=== PATIENT | male | born 1950 | race Caucasian/White ===

== ENCOUNTER 2021-09-25 11:27 | Outpatient (REF) | payer MEDICARE, BC, SELFPAY ==
[2021-09-28 13:46] LABS: Albumin 58.7 % (55.8-66.1); Albumin g/dL 4.1 g/dL (3.6-5.2)
== END 2021-09-25 11:28 | disposition home or self-care (01) ==
LOC: NCHCN 11:27
PROVIDERS: Visit Provider Family Medicine
DX: M89.9 Disorder of bone, unspecified (principal); R97.20 Elevated prostate specific antigen [PSA]
CPT/HCPCS: 84153; 84165

== ENCOUNTER → 2021-09-30 10:49 | Outpatient (BNVA) | payer MEDICARE, BC, SELFPAY | PROVIDERS: Visit Provider Nurse Practitioner Gerontology | DX: N40.2 Nodular prostate without lower urinary tract symptoms (principal); R97.20 Elevated prostate specific antigen [PSA] | CPT/HCPCS: 99205 ==

== ENCOUNTER → 2021-10-02 00:42 | Outpatient (CLI) | payer MEDICARE, BC, SELFPAY ==
--- NOTE | 2021-10-02 07:00 | DI.US_ITS ---
Exam(s) US PROSTATE BIOPSY EXAM: US PROSTATE BIOPSY CLINICAL HISTORY: elevated psa,R97.20, ULTRASOUND GUIDED BIOPSY TECHNIQUE: Transrectal ultrasound was provided for Dr. Sosa for guidance with prostate biopsy. COMPARISON: No exams were available for comparison FINDINGS: Please see procedure note for details. Prostate volume 33 cc. DATA REPOSITORY:
--- NOTE | 2021-10-02 10:40 | PROST_PTH ---
PATIENT: Maxwell Kennedy LOC: [facility] U#:[id number] AGE/SX: 74/M ROOM: RE10/02/[address]: Tita Martinez DNP : 1950 BED: DIS: SPEC #: [id number] RECD: 10/02/21 12:58 STATUS: DERIAN MOMIN #: [id number] KEVIN: 10/02/21 10:[address]: Adrián Sosa DEPT: Surgical Specimen RECD BY: Juli Quiñones ENTERED: 10/02/21 13:01 SP TYPE: PROST OTHR DR: Tita Martinez DNP YarielMaxwell Tissues: 1 - PROSTATE NEEDLE BIOPSY 2 - PROSTATE NEEDLE BIOPSY 3 - PROSTATE NEEDLE BIOPSY 4 - PROSTATE NEEDLE BIOPSY 5 - PROSTATE NEEDLE BIOPSY 6 - PROSTATE NEEDLE BIOPSY 7 - PROSTATE NEEDLE BIOPSY 8 - PROSTATE NEEDLE BIOPSY 9 - PROSTATE NEEDLE BIOPSY 10 - PROSTATE NEEDLE BIOPSY 11 - PROSTATE NEEDLE BIOPSY 12 - PROSTATE NEEDLE BIOPSY Procedures: GROSS AND MICRO LEVEL 4 IMMUNOPEROXIDASE STAIN Comments: [id number]
--- NOTE | 2021-10-02 11:10 | W.PM.OP ---
Date of service: 10/02/21 Time of Service: 11:10 Operative Note Operative Note DATE OF PROCEDURE: 10/02/21 PRE-OP DIAGNOSIS: Elevated PSA POST-OP DIAGNOSIS: same PROCEDURE: Transrectal ultrasound-guided biopsy of the prostate SURGEON: Adrián Sosa ANESTHESIA TYPE: Local By Surgeon Refer to Anesthesia Record ESTIMATED BLOOD LOSS: 10 PATHOLOGY: other (Laterally directed biopsies of the prostate) COMPLICATIONS: None Patient was transported to: no change Patient's condition: stable Implants: none Indications: This is a 71-year-old gentleman who recently presented to an [facility] emergency department with back pain. He had imaging studies consistent with metastatic pulmonary lesions. His PSA was 119 ng/mL and his prostate exam was abnormal on SEGUNDO. He presents for ultrasound-guided biopsy of the prostate Findings: Prostate volume approximately 33 cc Procedure Description: The patient was brought to the radiology suite on 10/02/2021. He had been given a preprocedural antibiotic and mechanical bowel prep. He was placed in the left lateral position. Transrectal imaging the prostate was performed using a variable megahertz transducer. The prostate was imaged in transverse and longitudinal planes. The prostatic volume was measured at 33 cc. No specific hypoechoic areas were identified, but there was no discrete delineation between peripheral zone and transition zone architecture. A periprostatic nerve block was performed using 1% Xylocaine without epinephrine. A total of 12 laterally directed biopsies were taken, labeled and sent to pathology for permanent section. The patient tolerated this procedure well with no complications. We will start him on Casodex while we await the biopsy results. Once we have a pathology confirmation of prostate cancer, we can start him on Lupron injections and refer him to medical oncology.
== END ==
PROVIDERS: Visit Provider Nurse Practitioner Gerontology
DX: C61 Malignant neoplasm of prostate (principal)
CPT/HCPCS: 55700; 76942; 88305; 88361

== ENCOUNTER 2021-12-22 02:56 | Outpatient (CLI) | payer MEDICARE, BC, SELFPAY ==
[2021-12-22 08:12] LABS: Abs Immature Grans 0.02 10^3/uL (0.0-0.06); Absolute Basophil Count 0.04 10^3/uL (0.0-0.2); Absolute Eosinophil Count 0.26 10^3/uL (0.0-0.7); Absolute Lymphocyte Count 2.96 10^3/uL (1.2-3.4); Absolute Monocyte Count 0.54 10^3/uL (0.1-0.8); Absolute Neutrophil Count 3.93 10^3/uL (1.2-6.7); Basophils % 0.5; Eosinophils % 3.4; HCT 42.4 % (40.0-50.0); HGB 14.2 g/dL (13.5-17.5); Immature Grans % 0.3; Lymphocytes % 38.2; MCH 29.9 pg (27.0-33.0); MCHC 33.5 % (32.0-36.0); MCV 89 fL (80-95); MPV 9.1 fL (8.0-11.0); Neutrophils % 50.6; Platelet Count 278 10^3/uL (130-400); RBC 4.75 10^6/uL (4.36-5.78); RDW-SD 45.6 fL; WBC 7.75 10^3/uL (4.4-10.8)
[2021-12-22 09:11] LABS: ALT 78 U/L (16-63); AST 47 U/L (15-37); Alkaline Phosphatase 191 U/L (46-116); Anion Gap 13.1 mmol/L (3-11); BUN 23 mg/dL (7-18); Bilirubin, Total 0.5 mg/dL (0.2-1.0); CO2 23.9 mmol/L (21.0-32.0); CREATININE 0.9 mg/dL (0.70-1.30); Calcium 8.6 mg/dL (8.5-10.1); Chloride 103 mmol/L (98-107); Estimated GFR 91.88 (mL/min/1.73m2); Glucose 109 mg/dL (74-106); Potassium 3.4 mmol/L (3.5-5.1); Sodium 140 mmol/L (136-145)
[2021-12-23 14:11] LABS: PSA, Ultrasensitive 1.4 ng/mL (<= 6.5)
[2021-12-24 15:21] LABS: Testosterone, Total <7.0 ng/dL (240-950)
== END 2021-12-22 02:57 | disposition home or self-care (01) ==
PROVIDERS: PCP Family Medicine; Visit Provider Internal Medicine
DX: C61 Malignant neoplasm of prostate (principal); C79.51 Secondary malignant neoplasm of bone
CPT/HCPCS: 36415; 80053; 84153; 84403; 85025

== ENCOUNTER 2022-01-05 09:03 | Outpatient (CLI) | payer MEDICARE, BC, SELFPAY ==
[2022-01-05 10:39] LABS: ALT 45 U/L (16-63); AST 27 U/L (15-37); Alkaline Phosphatase 126 U/L (46-116); Anion Gap 9.3 mmol/L (3-11); BUN 14 mg/dL (7-18); Bilirubin, Total 0.8 mg/dL (0.2-1.0); CO2 27.7 mmol/L (21.0-32.0); CREATININE 0.9 mg/dL (0.70-1.30); Calcium 8.2 mg/dL (8.5-10.1); Chloride 103 mmol/L (98-107); Estimated GFR 91.88 (mL/min/1.73m2); Glucose 127 mg/dL (74-106); Potassium 3.3 mmol/L (3.5-5.1); Sodium 140 mmol/L (136-145); Total Protein 7.8 g/dL (6.4-8.2)
== END 2022-01-05 09:04 | disposition home or self-care (01) ==
LOC: LBO 09:04
PROVIDERS: PCP Family Medicine; Visit Provider Internal Medicine
DX: C61 Malignant neoplasm of prostate (principal); C79.51 Secondary malignant neoplasm of bone
CPT/HCPCS: 36415; 80053

== ENCOUNTER 2022-01-19 10:23 | Outpatient (CLI) | payer MEDICARE, BC, SELFPAY ==
--- OUTSIDE RECORDS SUMMARY | 2022-01-19 10:27 | XMS_ITS | Encounter Summary ---
:1950 Author Organization [facility] [place] [address] Care Team Providers Name Role Phone Maxwell Saldivar MD Primary Care Provider Reason for Visit Reason Comments Injections IM Lupron and SQ Xgeva Treatment/Therapy Plan Authorization (Routine) - Authorized Specialty Diagnoses / Procedures Referred By Contact Refer red To Contact Diagnoses Malignant neoplasm of prostate metastatic to bone Woody Mora MD [facility] Hem Onc Office Procedures [address] HEMATOLOGY/[place] [phone] Fax: Referral ID Status Reason Start Date Expiration Date Visits V isits Requested Authorized [id number] Authorized 12/01/2021 03/13/2022 99 99 Encounter Details Date Type Department Care Team Description 12/29/2021 Infusion Hematology Oncology at [facility] neoplasm [facility] prostate metastatic to bone [address] [place], [place] [phone] Social History Tobacco Use Types Packs/Day Years Used Date Never Smoker Smokeless Tobacco: Never Used Alcohol Use Standard Drinks/Week Comments Yes 1 (1 standard drink = 0.6 oz pure alcoho l) Financial Resource Strain Answer Date Recorded How hard is it for you to pay for the very basics like Not h frida at all 11/03/2021 food, housing, medical care, and heating? Food Insecurity Answer Date Recorded Within the past 12 months, you worried that your food would Never true 11/03/2021 run out before you got money to buy more. Within the past 12 months, the food you bought just didn't N ever true 11/03/2021 last and you didn't have money to get more. Transportation Needs Answer Date Recorded In the past 12 months, has lack of transportation kept you f rom No 11/03/2021 medical appointments or from getting medications? In the past 12 months, has lack of transportation kept you f rom No 11/03/2021 meetings, work, or getting things needed for daily living? Housing Stability Answer Date Recorded In the last 12 months, was there a time when you were not ab le No 11/03/2021 to pay the mortgage or rent on time? In the last 12 months, how many places have you lived? 1 11/03/2021 In the last 12 months, was there a time when you did not hav e a No 11/03/[address] to [address] or slept in a penitentiary (including now)? Sex Assigned at Date Recorded Not on file documented as of this encounter Progress Notes Loren Nunez RN - 12/29/2021 2:30 PM EDT Infusion Note Diagnosis:Prostate Cancer Treatment: Lupron Injection and SQ Xgeva LAB: CrCl - 91.847, Corrected calcium - 8.60 Lupron 22.5 mg injected in left buttocks. Xgeva SQ R arm. Patient instructed on side effects of Lupron and Xgeva. Written information given. Is to stop abiraterone and prednisone due to increased liver enzymes. Patient states understanding of teaching, Patient aware to call clinic with any questions or concerns. Plan: Return to clinic tomorrow for radiation. documented in this encounter Plan of Treatment Upcoming Encounters Date Type Specialty Care Team Description 02/02/2022 Office Visit Hematology and Oncology Woody Bowles MD [facility] ER HEMATOLOGY/ONCOL [place], [place] [address] (Wo rk) documented as of this encounter Visit Diagnoses Diagnosis Malignant neoplasm of prostate metastati c to bone Malignant neoplasm of prostate documented in this encounter Administered Medications Inactive Administered Medications - up to 3 most recent administrations Medication Order MAR Action Action Date Dose Rate Site calcium carbonate (Tums) chewable Given 12/29/2021 3:27 PM EDT 5 00 mg tablet 500 mg 500 mg, Oral, ONCE, 1 dose, On Tue12/29/21 at 1530, Routine denosumab (Xgeva) (120 mg/1.7 mL) Given 12/29/2021 3:27 PM EDT 1 20 mg Left Arm subcutaneous injection 120 mg 120 mg, Subcutaneous, ONCE, 1 dose, On Tue12/29/21 at 1530, Bring to room temperature 15-30 mins before administration. Call provider for corrected calcium less than 8.5 mg/dL or CrCl less than 30 mL/min., This agent is restricted to outpatient use. Is this drug being given as an outpatient? Yes leuprolide (Lupron Depot) Given 12/29/2021 3:25 PM EDT 22.5 mg Left Gluteal injection 22.5 mg 22.5 mg, Intramuscular, ONCE, 1 dose, On Tue12/29/21 at 1530, Routine, This agent is restricted to outpatient use. Is this drug being given as an outpatient? Yes documented in this encounter Care Teams Livestock Dealer Relationship Specialty Start Date End Date Maxwell Saldivar MD PCP - General Family Medicine 10/12/21 [address] [place] [address] documented as of this encounter
--- OUTSIDE RECORDS SUMMARY | 2022-01-19 10:27 | XMS_ITS | Encounter Summary ---
:1950 Author Organization [facility] [place] [address] Care Team Providers Name Role Phone Maxwell Saldivar MD Primary Care Provider Reason for Visit Consultation (Routine) - Closed Specialty Diagnoses / Procedures Referred By Contact Refer red To Contact Radiation Oncology Diagnoses Malignant neoplasm of prostate metastatic to bone Arya Atkinson MD [facility] Rad Onc Office Procedures Simulation for Radiation Therapy Planning [address] [place] [address] [place] [phone] Referral ID Status Reason Start Date Expiration Date Visits V isits Requested Authorized [id number] Closed Consult, 12/14/2021 12/14/2022 1 1 Test & Treat Encounter Details Date Type Department Care Team Description 12/16/2021 Ancillary Appointment [facility] [address] [place] [address] RADIATION ONCOL OGY [address] [place], [place] [phone] (Wo rk) Social History Tobacco Use Types Packs/Day Years [...] place to sleep or slept in a detention (including now)? Sex Assigned at Date Recorded Not on file documented as of this encounter Progress Notes Tori Sanderson MD - 12/16/2021 2:30 PM EDT Simulation Note for External Beam Radiation Treatment Planning [facility] Fitz Kennedy is a 71 y.o. year old male with metastatic prostate cancer who was simulated for palliative radiotherapy to his sacrum and right proximal femur today. No changes were made from the plan as documented in the original simulation order and instructions. A 2.5mm slice thickness CT scan of the patient was obtained today in clinic. This scan was performedto delineate both target volumes and organs/structures at risk. These images will be used to create a customized treatment plan. I anticipate his prescription dose will be 20Gy to the sacrum, delivered in daily 4Gy fractions overthe course of 1 weeks, and 8Gy to the proximal right femur, delivered in a single fraction. Anticipate therapy to begin within the next 3-5 days. The patient tolerated this procedure well, and was provided instructions with regard to upcoming appointments. Olive Sanderson MD PGY3 Attending MD Attestation: I was present for the above procedure, personally reviewed and approved of the images with the patient still in the simulation room. I agree with the details as written above. Arya Atkinson MD, MS Living Skills Advisor Radiation Oncology documented in this encounter Plan of Treatment Upcoming Encounters Date Type Specialty Care Team Description 02/02/2022 Office Visit Hematology and Oncology Woody Bowles MD [facility] HEMATOLOGY/ONCOL [place], [place] [address] (Wo rk) Scheduled Orders Name Type Priority Associated Diagnoses Order S chedule Simulation for Procedures Routine Malignant neoplasm of Orde red: 12/14/2021 Radiation Therapy prostate metastatic to Planning bone documented as of this encounter Visit Diagnoses Not on filedocumented in this encounter Care Teams Other Sports Coach Or Instructor Relationship Specialty Start Date End Date Maxwell Saldivar MD PCP - General Family Medicine 10/12/21 [place] [phone] documented as of this encounter
--- OUTSIDE RECORDS SUMMARY | 2022-01-19 10:27 | XMS_ITS | Encounter Summary ---
:1950 Author Organization [facility] [place] [address] Care Team Providers Name Role Phone Maxwell Saldivar MD Primary Care Provider Encounter Details Date Type Department Care Team Description 12/29/2021 Office Visit Hematology/Oncology Ana Gonzalez Mali gnant neoplasm of prostate metastatic to bone; at [facility] CARRIAGE DOGGER Androgen deprivation therapy; [address] Elevated liver enzymes [place], [place] MEDICAL [place]COLOG [place] [address] [place], [place] [phone] (Wo rk) Social History Tobacco Use Types [...] place to sleep or slept in a snf (including now)? Sex Assigned at Date Recorded Not on file documented as of this encounter Last Filed Vital Signs Vital Sign Reading Time Taken Comments Blood Pressure 126/74 12/29/2021 2:01 PM EDT Pulse 78 12/29/2021 2:01 PM EDT Temperature 36.3 ??C (97.3 ??F) 12/29/2021 2:01 PM EDT Respiratory Rate 16 12/29/2021 2:01 PM EDT Oxygen Saturation 99% 12/29/2021 2:01 PM EDT Inhaled Oxygen Concentration - - Weight 85.5 kg (188 lb 6.4 oz) 12/29/2021 2:01 PM EDT Height - - Body Mass Index 27.43 12/01/2021 8:19 AM EDT documented in this encounter Progress Notes Ana Gonzalez APRN - 12/29/2021 2:00 PM EDT OUTPATIENT HEMATOLOGY/ ONCOLOGY CONSULTATION HISTORY PRESENT ILLNESS This patient is a 71 y.o. male presenting for evaluation of metastatic prostate cancer. 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 He presented to an emergency room in [place], where he turner, with chest pain radiating to the back. The doctors there were apparently concerned for a aortic dissection, and imaging was performed. There were no vascular abnormalities, but they did find multiple bony lesions. Upon further work-up, PSA was about 100. He was referred for prostate biopsy, which confirmed the diagnosis locally, with high-grade features with a max Nneka of 9. Today, he still struggling with some back pain and bony pain. He denies any fevers, chills, night sweats. No urologic symptoms. INTERVAL HISTORY(12/29/21)- Mr. Kennedy returns today for follow up of metastatic prostate cancer. He is accompanied by his daughter Anca. He started abiraterone 1000 mg with prednisone 5mg daily on 12/02/21. He is tolerating the pills. He initially had some nausea when taking the pills and he had one day when he went out after taking the pills and got dizzy. Denies any shortness of breath, cough, chest pain or edema. He is currently getting RT to his right hip for pain. He is no longer having to use the cane. He denies any urinary issues. No fevers, chills or signs of infection. He has been eating well. 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 He would like to return to [place] for the winter. No other focal complaints today. Relevant PMHx/ risk factors: ??? HTN Work up/ Pertinent Data ??? Prostate biopsy- many cores involved. Max Nneka=9 ??? CT (from [place], for back/ chest pain)- multiple spinal and sacral bone lesions, concerning for mets ??? 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 abiraterone (Zytiga) 250 mg Tablet Take 4 tablets by mouth daily. Take 4 tabs by mouth once daily onempty stomach, no food for 2 hours before or 1-1.5hrs after. Yes hydroCHLOROthiazide (Hydrodiuril) 12.5 mg Tablet Take 12.5 mg by mouth daily. Yes predniSONE (Deltasone) 5 mg Tablet Take 1 tablet by mouth daily. Yes lisinopriL (Zestril) 10 mg Tablet Take 10 mg by mouth daily. oxyCODONE (Roxicodone) 5 mg Tablet Take 1 tablet by mouth every 4 hours as needed for Pain. Patient not taking: No sig reported PAST MEDICAL HISTORY- reviewed Patient Active Problem List Diagnosis Code ??? Malignant neoplasm of prostate metastatic to bone C61, C79.51 PAST SURGICAL HISTORY- reviewed, only relevant surgeries listed below None FAMILY HISTORY- reviewed, only relevant Family Hx listed below None COMPREHENSIVE REVIEW OF SYSTEMS Besides what is mentioned in the HPI, all other systems are negative PHYSICAL EXAMINATION Patient Vitals for the past 24 hrs: Temp Pulse Resp BP SpO2 12/29/21 1401 36.3 ??C (97.3 ??F) 78 16 126/74 99 % NAD, pleasant, Exam not repeated LABORATORY EVALUATION 12/22/21- WBC-7.75 Hgb/Hct-14.2/42.4 Plt-278 ANC-3.93 Na-140 K+-3.4 BUN/cr-23/0.9 Glucose-109 Ca-8.6 T. Bili-0.5 AST-47 ALT-78 Alk phos-191 Albumin-4.0 Date PSA Testosterone 12/22/21 1.4 <7.0 ASSESSMENT: Maxwell Kennedy is a 71 y.o. male presents with metastatic prostate cancer. He presented to ED with chest/ back pain, found to have multiple bony lesions. PSA was 125. Prostate biopsy revealed max Nneka 9 prostate adenocarcinoma. PSMA PET scan was done on 12/08/21 w;hich showed multiple osseous metastases. He was referred to radiation oncology and is currently getting 5 treatments to his R hip. Maxwell was started on Degarelix and Xgeva. He started Abiraterone 1000mg with Prednisone 5mg po daily on 12/02/21. He then transferred his care to the [facility]. He is here today for follow up and toxicity check and to start Lupron 22.5mg sc every 3 months and to continue monthly Xgeva injections. PSA today is 1.4. He is tolerating the abiraterone but has an elevation in his liver enzymes- AST-47 ALT-78 Alk phos-191. We will hold the abiraterone for 1 week and have him return with repeat lab work. Plan: 1. Continue Lupron 22.5mg sc every 3 months and Xgeva monthly. 2. Hold abiraterone. 3. Return to clinic in one week with CMP and follow up with Dr. Mora. Maxwell voiced understanding of the plan and was given an opportunity to ask questions which I answeredto the best of my ability. Maxwell understands he can call the clinic between visits with any questions/concerns or new symptoms. Ana Gonzalez MSN, CARRIAGE DOGGER, AOCNP Medical Oncology documented in this encounter Plan of Treatment Upcoming Encounters Date Type Specialty Care Team Description 02/02/2022 Office Visit Hematology and Oncology Woody Bowles MD [facility] ER HEM[place]OLOGY[place] [address] (Wo rk) documented as of this encounter Visit Diagnoses Diagnosis Malignant neoplasm of prostate metastati c to bone Malignant neoplasm of prostate Androgen deprivation therapy Encounter for therapeutic drug monitorin g Elevated liver enzymes Nonspecific elevation of levels of trans aminase or lactic acid dehydrogenase (LDH) documented in this encounter Care Teams Sewer Builder Relationship Specialty Start Date End Date Maxwell Saldivar MD PCP - General Family Medicine 10/12/21 [place] [address] documented as of this encounter
--- OUTSIDE RECORDS SUMMARY | 2022-01-19 10:27 | XMS_ITS | Encounter Summary ---
:1950 Author Organization [facility] [place] [address] Care Team Providers Name Role Phone Maxwell Saldivar MD Primary Care Provider Encounter Details Date Type Department Care Team Description 01/05/2022 Travel Social History Tobacco Use Types Packs/Day Years [...] place to sleep or slept in a retirement (including now)? Sex Assigned at Date Recorded Not on file documented as of this encounter Plan of Treatment Upcoming Encounters Date Type Specialty Care Team Description 02/02/2022 Office Visit Hematology and Oncology Woody Bowles MD [facility] ER HEMATOLOGY/ONCOL [place], [place] [address] (Wo rk) documented as of this encounter Visit Diagnoses Not on filedocumented in this encounter Care Teams Rug Cleaning Supervisor Relationship Specialty Start Date End Date Maxwell Saldivar MD PCP - General Family Medicine 10/12/21 [address] [place] [address] documented as of this encounter
--- OUTSIDE RECORDS SUMMARY | 2022-01-19 10:27 | XMS_ITS | Encounter Summary ---
:1950 Author Organization [facility] [place] [address] Care Team Providers Name Role Phone Maxwell Saldivar MD Primary Care Provider Reason for Visit Treatment/Therapy Plan Authorization (Routine) - Authorized Specialty Diagnoses / Procedures Referred By Contact Refer red To Contact Hematology and Oncology Diagnoses Malignant neoplasm of prostate metastatic to bone Hermilo Valdez, [facility] Hem Onc 3k Procedures INFUSION [facility] [address], [place] [phone] Fax: Referral ID Status Reason Start Date Expiration Date Visits V isits Requested Authorized [id number] Authorized 10/31/2021 10/31/2022 99 99 Encounter Details Date Type Department Care Team Description 12/01/2021 Hospital Encounter Hematology and Maligna nt neoplasm of Oncology at [facility] prostate metastatic to [facility] [place] [phone] Social History Tobacco Use Types Packs/Day Years Used Date Never Smoker Smokeless Tobacco: Never Used Financial Resource Strain Answer Date Recorded How [...] on file documented as of this encounter Medications at Time of Discharge Medication Sig Dispensed Refills Start Date End Date hydroCHLOROthiazide Take 12.5 mg by 0 (Hydrodiuril) 12.5 mg Tablet mouth daily. predniSONE (Deltasone) 5 mg Take 1 tablet by 90 tablet 0 Tablet mouth daily. oxyCODONE (Roxicodone) 5 mg Take 1 tablet by 60 tablet 0 Tablet mouth every 4 hours as needed for Pain. abiraterone (Zytiga) 250 mg Take 4 tablets 120 tablet 11/1301/05/2022 Tablet by mouth daily. Take 4 tabs by mouth once daily on empty stomach, no food for 2 hours before or 1-1.5hrs after. abiraterone (Zytiga) 500 mg Take 2 tablets 60 tablet 11/1212/02/2021 Tablet by mouth daily. lisinopriL (Zestril) 30 mg Take 30 mg by 0 12/29/2021 Tablet mouth daily. morphine IR (MSIR) 15 mg Take 15 mg by 0 12/29/2021 Tablet mouth every 4 hours as needed for Pain. documented as of this encounter Progress Notes Nellie Bridges RN - 12/01/2021 10:09 AM EDT Patient Name: Maxwell Kennedy Patient Age: 71 y.o. Birthdate: 1950 Admit date: 12/01/2021 Attending Physician: No att. providers found Access visit. See MAR and/or flowsheet.tums, xgeva, degarelix given. documented in this encounter Plan of Treatment Upcoming Encounters Date Type Specialty Care Team Description 02/02/2022 Office Visit Hematology and Oncology Wooyd Bowles MD [facility] ER HEMATOLOGY/[place] [address] (Wo rk) documented as of this encounter Visit Diagnoses Diagnosis Malignant neoplasm of prostate metastati c to bone Malignant neoplasm of prostate documented in this encounter Administered Medications Inactive Administered Medications - up to 3 most recent administrations Medication Order MAR Action Action Date Dose Rate Site calcium carbonate (Tums) chewable Given 12/01/2021 10:01 AM EDT 500 mg tablet 500 mg 500 mg, Oral, ONCE, 1 dose, On Tue12/01/21 at 0945, Routine degarelix (Firmagon) (80 mg/4 mL) injection Given 12/01/2021 10:04 AM EDT 80 mg 80 mg 80 mg, Subcutaneous, ONCE, 1 dose, On Tue12/01/21 at 0945, Routine, This agent is restricted to outpatient use. Is this drug being given as an outpatient? Yes denosumab (Xgeva) (120 mg/1.7 mL) Given 12/01/2021 10:04 AM EDT 120 mg Right Arm subcutaneous injection 120 mg 120 mg, Subcutaneous, ONCE, 1 dose, On Tue12/01/21 at 0945, Bring to room temperature 15-30 mins before administration. Call provider for corrected calcium less than 8.5 mg/dL or CrCl less than 30 mL/min., This agent is restricted to outpatient use. Is this drug being given as an outpatient? Yes documented in this encounter Care Teams Chief Cook Relationship Specialty Start Date End Date Maxwell Saldivar MD PCP - General Family Medicine 10/12/21 [place] [address] documented as of this encounter
--- OUTSIDE RECORDS SUMMARY | 2022-01-19 10:27 | XMS_ITS | Encounter Summary ---
:1950 Author Organization [facility] [place] [address] Care Team Providers Name Role Phone Maxwell Saldivar MD Primary Care Provider Reason for Referral Consultation (Routine) - Closed Specialty Diagnoses / Procedures Referred By Contact Refer red To Contact Radiation Oncology Diagnoses Malignant neoplasm of prostate metastatic to bone Arya Atkinson MD [facility] Procedures Simulation for Radiation Therapy Planning [address] [place] [address] [place] [phone] Referral ID Status Reason Start Date Expiration Date Visits V isits Requested Authorized [id number] Closed Consult, 12/14/2021 12/14/2022 1 1 Test & Treat Encounter Details Date Type Department Care Team Description 12/14/2021 Orders Only Radiation Oncology at Arya Atkinson M alignant neoplasm of [facility] prostate metastatic to [address] [place] [address] DR green [place], [place] RADIATION ONCOL OGY [address] [place], [place] [phone] (Wo rk) Social History Tobacco Use Types [...] place to sleep or slept in a group home (including now)? Sex Assigned at Date Recorded Not on file documented as of this encounter Plan of Treatment Upcoming Encounters Date Type Specialty Care Team Description 02/02/2022 Office Visit Hematology and Oncology Woody Bowles MD [facility] HEMATOLOGY/ONCOL [place], [place] [address] (Wo rk) Scheduled Orders Name Type Priority Associated Diagnoses Order S chedule Simulation for Procedures Routine Malignant neoplasm of Orde red: 12/14/2021 Radiation Therapy prostate metastatic to Planning bone documented as of this encounter Visit Diagnoses Diagnosis Malignant neoplasm of prostate metastati c to bone Malignant neoplasm of prostate documented in this encounter Care Teams Industrial Controller Relationship Specialty Start Date End Date Maxwell Saldivar MD PCP - General Family Medicine 10/12/21 [place] [address] documented as of this encounter
--- OUTSIDE RECORDS SUMMARY | 2022-01-19 10:27 | XMS_ITS | Encounter Summary ---
:1950 Author Organization [facility] [address] Care Team Providers Name Role Phone Maxwell Saldivar MD Primary Care Provider Reason for Visit Diagnostic Test (Routine) - Closed Specialty Diagnoses / Procedures Referred By Contact Refer red To Contact Radiology Diagnoses Malignant neoplasm of prostate metastatic to bone Hermilo Valdez MD [facility] Rad Nuclear Med Procedures NM PET CT PSMA Prostate (Illuccix) [place] [address] [place] [address] Fax: Referral ID Status Reason Start Date Expiration Date Visits V isits Requested Authorized [id number] Closed Specialty 11/03/2021 05/06/2023 1 1 Service Requested Encounter Details Date Type Department Care Team Description 12/08/2021 Hospital Encounter Nuclear Medicine at Rodolfo Valdez Mary Hitchcock MD [facility] [address] [place] [address] [phone] (Wo rk) Social History Tobacco Use Types [...] place to sleep or slept in a [place] [facility] [place] (including now)? Sex Assigned at Date Recorded [...] for 2 hours before or 1-1.5hrs after. lisinopriL (Zestril) 30 mg Take 30 mg by 0 12/29/2021 Tablet mouth daily. morphine IR (MSIR) 15 mg Take 15 mg by 0 12/29/2021 Tablet mouth every 4 hours as needed for Pain. documented as of this encounter Plan of Treatment Upcoming Encounters Date Type Specialty Care Team Description 02/02/2022 Office Visit Hematology and Oncology Woody Bowles MD [facility] HEM[facility]ONCOL OGY [place], [place] [address] (Wo rk) documented as of this encounter Procedures Procedure Name Priority Date/Time Associated Diagnosis Comme nts NM PET CT PSMA Routine 12/08/2021 12:56 PM Malignant neoplasm Results for this PROSTATE (ILLUCCIX) EDT of prostate procedur e are in metastatic to bone the resul ts section. documented in this encounter Results NM PET CT PSMA Prostate (Illuccix) (12/08/2021 12:56 PM EDT) Anatomical Region Laterality Modality Positron Emission To mography (PET) Specimen (Source) Anatomical Location Collection Method / Collectio n Time Received Time / Laterality Volume Impressions 12/09/2021 9:34 AM EDT 1. ??Heterogeneously increased tracer avidity throughout the prostate and extending into the bilateral seminal ves icles, consistent with primary prostatic malignancy. 2. ??Multiple PSMA positive osseous meta stases throughout the axial and visualized appendicular skeleton. 3. ??Small PSMA positive kye metastasi s in the right obturator region. Thank you for referring this patient to [facility]. Thank you for letting us participate in the care of this patient. ??If you are a health care provider and have any questi ons regarding this report, please contact the number below. ??For patients who have questions please contact the health care process manager that requested your imaging first. ? Narrative 12/09/2021 9:34 AM EDT EXAMINATION: NM PET CT PSMA PROSTATE (ILLUCCIX) CLINICAL HISTORY: Prostate cancer- stagi ng TECHNIQUE: Following IV injection of Ga 68 PSMA-11 (IIlluccix)?and a standard uptake of approximately 60 minutes, a no ncontrast CT scan followed by a PET scan were acquired from the base of the skull to mid thighs. The noncontrast CT was used for anatomic localization and photo n attenuation correction of the PET scan. Ga 68 PSMA-11 (IIlluccix)?Dose: 6.4 mCi COMPARISON: None FINDINGS: HEAD/NECK: Normal activity in all soft tissue regio ns of the neck and visualized lower head. Physiologic activity present in th e lacrimal and salivary glands. No significant adenopathy. CHEST: Normal activity in all soft tissue regio ns. No significant adenopathy or pulmonary nodules. Trace coronary and ao rtic calcifications. ABDOMEN/PELVIS: Heterogeneously increased tracer avidity throughout the prostate and extending to the bilateral seminal vesicles. Subcentimeter tracer avid lymph node in the right posterior obturator region (axial image 263). No other adenopathy. Physiologic activit y is present in the liver, spleen, collecting system, and GI tract. SKELETON/EXTREMITIES: Multiple tracer avid osseous lesions sca ttered throughout the axial and visualized appendicular skeleton, nearly all of which are associated with sclerotic lesions on CT, and with no benny dence of cortical disruption. Procedure Note Nelson Mcdowell MD - 12/09/2021Formatti ng of this note might be different from the original. EXAMINATION: NM PET CT PSMA PROSTATE (IL LUCCIX) CLINICAL HISTORY: Prostate cancer- stagi ng TECHNIQUE: Following IV injection of Ga 68 PSMA-11 (IIlluccix)?and a standard uptake of approximately 60 minutes, a no ncontrast CT scan followed by a PET scan were acquired from the base of the skull to mid thighs. The noncontrast CT was used for anatomic localization and photo n attenuation correction of the PET scan. Ga 68 PSMA-11 (IIlluccix)?Dose: 6.4 mCi COMPARISON: None FINDINGS: HEAD/NECK: Normal activity in all soft tissue regio ns of the neck and visualized lower head. Physiologic activity present in th e lacrimal and salivary glands. No significant adenopathy. CHEST: Normal activity in all soft tissue regio ns. No significant adenopathy or pulmonary nodules. Trace coronary and ao rtic calcifications. ABDOMEN/PELVIS: Heterogeneously increased tracer avidity throughout the prostate and extending to the bilateral seminal vesicles. Subcentimeter tracer avid lymph node in the right posterior obturator region (axial image 263). No other adenopathy. Physiologic activit y is present in the liver, spleen, collecting system, and GI tract. SKELETON/EXTREMITIES: Multiple tracer avid osseous lesions sca ttered throughout the axial and visualized appendicular skeleton, nearly all of which are associated with sclerotic lesions on CT, and with no benny dence of cortical disruption. IMPRESSION 1. Heterogeneously increased tracer avid ity throughout the prostate and extending into the bilateral seminal ves icles, consistent with primary prostatic malignancy. 2. Multiple PSMA positive osseous metast ases throughout the axial and visualized appendicular skeleton. 3. Small PSMA positive kye metastasis in the right obturator region. Thank you for referring this patient to [facility]. Thank you for letting us participate in the care of this patient. If you are a health care provider and have any questi ons regarding this report, please contact the number below. For patients w ho have questions please contact the health care process manager that requested your imaging first. Hermilo Valdez MD IMG PET ORDERABLES documented in this encounter Visit Diagnoses Not on filedocumented in this encounter Care Teams Scow Hand Relationship Specialty Start Date End Date Maxwell Saldivar MD PCP - General Family Medicine 10/12/21 [place] [address] documented as of this encounter
--- OUTSIDE RECORDS SUMMARY | 2022-01-19 10:27 | XMS_ITS | Encounter Summary ---
:1950 Author Organization [facility] [place] [address] Care Team Providers Name Role Phone Maxwell Saldivar MD Primary Care Provider Encounter Details Date Type Department Care Team Description 12/16/2021 Notes Only [facility] [address] [place], [place] [address] [phone] Social History Tobacco Use Types Packs/Day Years [...] place to sleep or slept in a mcc (including now)? Sex Assigned at Date Recorded Not on file documented as of this encounter Progress Notes Courtney Monk, PATTERN ATTENDANT - 12/16/2021 3:51 PM EDT Reason for Referral: Brief assessment of social and emotional needs. Met with Maxwell and his daughter Vesna after his sim today to introduce myself and role of clinical social work therapist to assess/address barriers to getting to and through treatments; address support needs and connect with community services and re sources as needed. Family/Social Supports: Pt identified his primary support as his daughter Vesna who lives nearby. Maxwell is and is his 's caregiver as she has dementia. Two of her children are involved to help out and give Maxwell some respite. Living Situation/Daily Activities/Transportation: Maxwell manages his daily chores and activities. He cares for his as noted above. He is expecting 5 RT treatments. He does not expect any issues withtransportation. 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 He has Medicare and BCBS for insurance. Advance Directives: Maxwell has not completed his advance directive. He has talked to his daughter re this. He also spends time in [place] so he is unsure what form to use. Suggested he complete the [place] directive so daughter has this information to inform decisions if she has to step into that role. Utilization of Community Resources: None at this time. Adjustment to Illness/Mental Health Concerns: Maxwell describes himself as a realist. He knows there isno cure for his cancer. His daughter supports what decision he makes. Her main concern is that her father is not in pain. They had a challenging experience when his /her mother passed 10 years ago from cancer. Offered support. Identified Needs: Maxwell did not identity any specific needs at this time. Referrals: None at this time. Social Work Interventions: Brief assessment Supportive Counseling Plan: Informed pt of PATTERN ATTENDANT availability and contact information. Will follow to assess/address psychosocial needs. ED Marie, MED AIDE, OSW-C Grain Trimmer [facility] documented in this encounter Plan of Treatment Upcoming Encounters Date Type Specialty Care Team Description 02/02/2022 Office Visit Hematology and Oncology Woody Bowles MD [facility] HEMATOLOGY/ONCOL [place], [place] [address] (Wo rk) documented as of this encounter Visit Diagnoses Not on filedocumented in this encounter Care Teams Magneto Repairer Relationship Specialty Start Date End Date Maxwell Saldivar MD PCP - General Family Medicine 10/12/[address] [facility] [place] [address] documented as of this encounter
--- OUTSIDE RECORDS SUMMARY | 2022-01-19 10:27 | XMS_ITS | Encounter Summary ---
:1950 Author Organization [facility] [place] [address] Care Team Providers Name Role Phone Maxwell Saldivar MD Primary Care Provider Reason for Referral Diagnostic Test (Routine) - Closed Specialty Diagnoses / Procedures Referred By Contact Refer red To Contact Radiology Diagnoses Malignant neoplasm of prostate metastatic to bone Hermilo Valdez MD [facility] Rad Nuclear Med Procedures NM PET CT PSMA Prostate (Illuccix) [address] [address] Fax: Referral ID Status Reason Start Date Expiration Date Visits V isits Requested Authorized [id number] Closed Specialty 11/03/2021 05/06/2023 1 1 Service Requested Reason for Visit Diagnostic Test (Routine) - Closed Specialty Diagnoses / Procedures Referred By Contact Refer red To Contact Radiology Diagnoses Malignant neoplasm of prostate metastatic to bone Hermilo Valdez MD [facility] Rad Nuclear Med Procedures NM PET CT PSMA Prostate (Illuccix) [place], [place] [address] [place] [address] Fax: Referral ID Status Reason Start Date Expiration Date Visits V isits Requested Authorized [id number] Closed Specialty 11/03/2021 05/06/2023 1 1 Service Requested Encounter Details Date Type Department Care Team Description 12/08/2021 Hospital Encounter Nuclear Medicine at Constantni Valdez MD of [facility] metastati c to bone [facility] [address] [place], [place] [address] [phone] Social History Tobacco Use Types Packs/Day Years [...] place to sleep or slept in a usp (including now)? Sex Assigned at Date Recorded [...] 250 mg Take 4 tablets 120 tablet 11 11/1301/05/2022 Tablet by mouth daily. Take 4 [...] Bowles MD [facility]ONCOL [place], [place] [address] (Wo rk) documented as of this encounter Procedures Procedure Name Priority Date/Time Associated Diagnosis Comme [facility] NM PET CT PSMA Routine 12/08/2021 12:56 [...] Thank you for referring this patient to [facility]. Thank you for letting us participate in the care of this patient. ??If you are a health care provider and have any questi ons regarding this report, please contact the number below. ??For patients who have questions please contact the health inpatient care manager rn that requested your imaging first. ? Electronically signed by: Nelson Mcdowell MD, [facility] ([phone]), at 12/09/2021 9:34 AM Narrative 12/09/2021 9:34 AM EDT EXAMINATION: NM [...] Thank you for referring this patient to [facility]. Thank you for letting us participate in the care of this patient. If you are a health care provider and have any questi ons regarding this report, please contact the number below. For patients w ho have questions please contact the health inpatient care manager rn that requested your imaging first. Electronically signed by: Nelson Mcdowell MD, Radiology [place] ([phone]), at 12/09/2021 9:34 AM Hermilo Valdez MD IMG PET ORDERABLES documented in this encounter Visit Diagnoses Diagnosis Malignant neoplasm of prostate metastati c to bone Malignant neoplasm of prostate documented in this encounter Administered Medications Inactive Administered Medications - up to 3 most recent administrations Medication Order MAR Action Action Date Dose Rate Site Ga 68 psma-11 (Illuccix) Given 12/08/2021 11:40 AM EDT 6.4 mCi Right Arm injection 4-10 mCi 4-10 mCi, Intravenous, ONCE, 1 dose, On Tue12/08/21 at 1200, Radiology Contrast, Routine documented in this encounter Care Teams Pulley Man Relationship Specialty Start Date End Date Maxwell Saldivar MD PCP - General Family Medicine 10/12/21 [address] [place] [address] documented as of this encounter
--- OUTSIDE RECORDS SUMMARY | 2022-01-19 10:27 | XMS_ITS | Encounter Summary ---
:1950 Author Organization [facility] [place] [address] Care Team Providers Name Role Phone Maxwell Saldivar MD Primary Care Provider Encounter Details Date Type Department Care Team Description 01/11/2022 Notes Only Radiation Oncology a t [facility] Tori Sanderson MD [facility] [place] [address] RADIATION ONCOLOGY [phone] [place] [address] (Wo rk) Social History Tobacco Use Types [...] place to sleep or slept in a [facility] (including now)? Sex Assigned at Date Recorded Not on file documented as of this encounter Progress Notes Tori Sanderson MD - 01/11/2022 1:30 PM EDT Images from the original note were not included. [facility] Radiation Oncology Radiation Therapy Completion Note Patient ID ?? Patient name: Maxwell Kennedy Date of : 1950 ? Referring: Dr Valdez PCP: Maxwell Saldivar MD ? Chief complaint: Cancer Staging Malignant neoplasm of prostate metastatic to bone Staging form: Prostate, AJCC 8th Edition - Clinical: Stage IVB (cNX, cM1b, PSA: 100) - Signed by Tori Sanderson MD on 12/16/2021 ? Treatment Details ?? Intent: Palliation (of painful bone metastases) ?? Concurrent Therapy: None ?? Modality: ?? 3DCRT Treatment Site 1 RT S/I Prescribed Dose 20 Gy in 5 fractions ? Treatment Site 2 RT Prox Femur Prescribed Dose 8 Gy in 1 fraction ? Total Dose Received: 20 Gy in 5 fractions - RT S/I 8Gy in 1 fraction - RT prox femur ? Solutions Delivery Consultant Nelson from Current Plan: ? Start Date: 12/28/21 End Date: 01/01/22 Elapsed Days: 4 Clinical Course Treatment tolerance: With regard to side effects noted during radiotherapy, the patient tolerated treatment extremely well with no significant acute (Grade 3 or above) toxicity or unplanned breaks. Treatment response: The patient's response to treatment was undetermined, given the short course of treatment. Future assessment will be determined via subjective pain reported by Maxwell. Follow up plan: Follow-up visit with Radiation Oncology in [facility] will be scheduled in 6- 8 weeks for routine post-procedural symptom check; he has received instructions to call this office or seek the help of the local emergency room if any further problems should arise prior to followup. Follow-up scheduled with Dr. Mora on 02/02/22. Olive Sanderson MD PGY3 ??? National Cancer [place] (NCI) Comprehensive Cancer Center ??? [employer] Commission on Cancer ([employer] [place]) Accredited Cancer Program ??? [employer] (ACR) Accredited Radiation Oncology Program documented in this encounter Plan of Treatment Upcoming Encounters Date Type Specialty Care Team Description 02/02/2022 Office Visit Hematology and Oncology Woody Bowles MD [facility] HEMATOLOGY/ONCOL [place], [place] [address] (Wo rk) documented as of this encounter Visit Diagnoses Not on filedocumented in this encounter Care Teams Tank Farm Attendant Relationship Specialty Start Date End Date Maxwell Saldivar MD PCP - General Family Medicine 10/12/21 [place] [address] documented as of this encounter
--- OUTSIDE RECORDS SUMMARY | 2022-01-19 10:27 | XMS_ITS | Encounter Summary ---
:1950 Author Organization [facility] [place] [address] Care Team Providers Name Role Phone Maxwell Saldivar MD Primary Care Provider Reason for Visit Reason Onset Date Comments Questions 12/01/2021 Encounter Details Date Type Department Care Team Description 12/01/2021 Refill Hematology and Oncology at Manjinder Rizvi RN [facility] INFUSION [facility] [place] [address] Social History Tobacco Use Types Packs/Day [...] on file documented as of this encounter Miscellaneous Notes Addendum Note - Manjinder Nunez RN - 12/02/2021 10:23 AM EDT Addended by: MANJINDER NUNEZ on: 12/02/2021 10:23 AM Modules accepted: Orders Telephone Encounter - Manjinder Nunez RN - 12/01/2021 11:29 AM EDT Message received from Rk Valdez MD: I was wondering if you could reach out to Maxwell regarding paying for Zytiga? He is skeptical of [facility], because they are charging him 850$, while he can get it from [employer] for 450$. To be honest, I don't know that he had a direct question, but wanted to talk to someone who might understand the process better than I do. Spoke w/ pt. He was referred to [facility] for assistance as the [employer] program for assistance closed. He initially went to [facility] and was quoted $450 then [facility] told him it would be $850. Discussed that zytiga copay assistance and that he should go w/ the most affordable program he was able to locate. DH refers to [facility] as they have their internal hardship copay program whereas no other pharmacies do. Discussed [facility] as an option- can find much lower prices on zytiga 250mg tabs through [facility] and certain pharmacies. Pt expressed interest in trying the 250mg tabs as they may lowerhis overall cost. Also discussed administration of zytiga (empty stomach, all pills at the same time, take prednisone w/ food). All his questions answered to his apparent satisfaction. Pt is aware he can call clinic w/any questions. 12/02 Received call from Vesna who stated that pt is stuck on that there isn't a fixed avendano for the medication. He just wants to get started on the therapy. Reviewed [facility] option, [facility] or local [facility]. Explained that it's expected that the 250mg tabs will be more affordable than the 500mg. Vesna looked on [facility] found that [facility] had reasonable avendano for zytiga and requested that the script be sent to [facility] in [facility]. Reviewed how pt should take medication and that he should reach out via phone call or myDH to clinicbefore starting. Script pended to provider for review, signature and escribe. documented in this encounter Plan of Treatment Upcoming Encounters Date Type Specialty Care Team Description 02/02/2022 Office Visit Hematology and Oncology Woody Bowles MD [facility] HEMATOLOGY/ONCOL [place], [place] [address] (Wo rk) documented as of this encounter Visit Diagnoses Not on filedocumented in this encounter Care Teams Dowel Sticker Operator Relationship Specialty Start Date End Date Maxwell Saldivar MD PCP - General Family Medicine 10/12/21 [address] [place] [address] documented as of this encounter
--- OUTSIDE RECORDS SUMMARY | 2022-01-19 10:27 | XMS_ITS | Clinical Summary ---
:1950 Author Organization [facility] [place] [address] Care Team Providers Name Role Phone Maxwell Saldivar MD Primary Care Provider Allergies No known active allergies Medications Medication Sig Dispensed Refills Start Date End Date Status hydroCHLOROthiazide Take 12.5 mg 0 Active (Hydrodiuril) 12.5 mg by mouth Tablet daily. predniSONE (Deltasone) 5 mg Take 1 tablet 90 tablet 0 11/04/19 22 Active Tablet by mouth daily. Additional Information Patient not taking. Reported on 01/05/2022 oxyCODONE (Roxicodone) 5 mg Take 1 tablet by mouth 60 tablet 0 11/03/2021 Active Tablet every 4 hours as needed for Pain. lisinopriL (Zestril) 10 mg Take 10 mg by mouth 0 01/2022 Active Tablet daily. acetaminophen (Tylenol) 500 Take 1,000 mg by mouth 0 Active mg Tablet every 8 hours as needed for Pain. potassium chloride ER Take 1 tablet by mouth 30 tablet 11 01/05 Active (K-Dur/Klor-Con) 10 mEq daily. Tablet Sustained Release abiraterone (Zytiga) 250 mg Take 3 tablets by mouth 90 tablet 11 01/05/2022 Active Tablet daily. Take 3 tabs by mouth once daily on empty stomach, no food for 1 hour before or 2 hrs after. 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 Hypokalemia 01/05/2022 Telephone Hematology and Emily Humphrey, Medication Refill waste minimization technician (Abiraterone 75 0 mg) 01/05/2022 Travel 01/01/2022 Office Visit Radiation Oncology Arya Atkinsona nt dalton Killian MD of prostate metastatic to b one 12/29/2021 Infusion Hematology and Malignant shelley plasm Oncology of prostate metastatic to b one 12/29/2021 Office Visit Hematology and Ana Gonzalez, Malignant neoplasm of prostate metastatic to bone; 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 Androgen depriv ation therapy; Elevated liver enzymes 12/16/2021 Ancillary Radiation Oncology Arya Atkinson MD 12/16/2021 Office Visit Radiation Oncology Manny Atkinsonav Jerry almeida neoplasm MD Constantin of prostate metastatic to b one 12/16/2021 Notes Only Radiation Oncology Courtney Monk, LARD BLEACHER 12/14/2021 Orders Only Radiation Oncology Manny Atkinsonav Jerry Killian MD of prostate metastatic to b one 12/08/2021 Hospital Encounter Radiology Hermilo Valdez MD 12/08/2021 Hospital Encounter Radiology José Miguel Malignant neoplasm Hermilo Hedrick MD of prostate metastatic to b one 12/01/2021 Office Visit Hematology and José Miguel Malignant shelley plasm Oncology Hermilo Hedrick MD of prostate ForJanine sevilla metastatic to bone A, 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 12/01/2021 Hospital Encounter Hematology and Maligna nt neoplasm Oncology of prostate metastatic to b one 12/01/2021 Hospital Encounter Hematology and Maligna nt neoplasm Oncology of prostate metastatic to b one 12/01/2021 Orders Only Hematology and Morgan, Malignant shelley plasm Oncology MD Woody of prostate metastatic to b one (Primary Dx) 12/01/2021 Refill Hematology and Blaire Nunez Oncology Josh RN 11/24/2021 Orders Only Hematology and José Miguel Oncology Hermilo Hedrick MD 11/23/2021 Refill Hematology and Blaire Nunez Oncology Josh, RN 11/09/2021 Telephone Hematology and Vesna Chandra Oncology M, RN 11/09/2021 Notes Only Care Management Zac Denton 11/03/2021 Office Visit Hematology and José Miguel, Malignant shelley plasm Oncology Hermilo Hedrick MD of prostate metastatic to b one 11/03/2021 Hospital Encounter Hematology and Maligna nt neoplasm Oncology of prostate metastatic to b one 11/03/2021 Hospital Encounter Hematology and Maligna nt neoplasm Oncology of prostate metastatic to b one 11/03/2021 Specialty Pharmacy Pharmacy [facility] (Abirate yas 500mg tablet) 11/03/2021 Abstract Hematology and Sherry, Oncology Manisha L 10/31/2021 Orders Only Hematology and José Miguel, Malignant shelley plasm Oncology Hermilo Hedrick MD of prostate metastatic to b one 10/29/2021 Orders Only Hematology and Morgan, Malignant shelley plasm Oncology MD Woody of prostate metastatic to b one (Primary Dx) from Last 3 Months Family History Medical History Relation Comments Breast Cancer Sister Lung Cancer Sister Relation Status Comments Sister Social History Tobacco Use Types Packs/Day Years [...] place to sleep or slept in a residential (including now)? Sex Assigned at Date Recorded Not on file Last Filed Vital Signs Vital Sign Reading Time Taken Comments Blood Pressure 147/80 01/05/2022 11:15 AM EDT Pulse 86 01/05/2022 11:15 AM EDT Temperature 36.7 ??C (98.1 ??F) 01/05/2022 11:15 AM EDT Respiratory Rate 16 01/05/2022 11:15 AM EDT Oxygen Saturation 100% 01/05/2022 11:15 AM EDT Inhaled Oxygen Concentration - - Weight 85.7 kg (189 lb) 01/05/2022 11:15 AM EDT Height 177.8 cm (5' 10) 01/05/2022 11:15 AM EDT Body Mass Index 27.12 01/05/2022 11:15 AM EDT Plan of Treatment Upcoming Encounters Date Type Specialty Care Team Description 02/02/2022 Office Visit Hematology and Oncology Woody Bowles MD [facility] HEMATOLOGY/ONCOL [place], [place] [address] (Wo rk) Health Maintenance Due Date Last Done Comments Covid-19 Vaccine (#1) 02/09/1951 Hepatitis C Screening 08/08/1969 Lipid Screening 08/08/1969 Tdap adult 08/08/1970 Tetanus vaccine 08/08/1970 Colonoscopy 08/08/1996 Zoster vaccine (1 of 2) 08/08/2001 Advance Directive 08/08/2006 Pneumoccocal Vaccine: 65+ (1 - PCV) 08/08/2016 Influenza (Flu) vaccine (1 of 1 - 11/12/2021 Influenza standard series) Diabetes Screening (HgbA1C or Glucose) 12/01/2024 2, 11/03/2021 Procedures Procedure Name Priority Date/Time Associated Comments Diagnosis LAB SCAN 12/22/2021 12:00 Results for this AM EDT procedure are i n the results section. LAB SCAN 12/22/2021 12:00 Results for this AM EDT procedure are i n the results section. CT RAD ONC BODY INTERP Routine 12/16/2021 3:52 PM Secondary ca rcinoid Results for this ONLY EDT tumors of bone procedure are in the results section. NM PET CT PSMA Routine 12/08/2021 12:56 Malignant neoplasm Res ults for this PROSTATE (ILLUCCIX) PM EDT of prostate procedur e are in metastatic to bone the resul ts section. DIFFERENTIAL, Routine 12/01/2021 7:12 AM Malignant neoplasm Re sults for this AUTOMATED EDT of prostate procedure are i n metastatic to bone the resul ts section. HEMOGRAM Routine 12/01/2021 7:12 AM Malignant neoplasm Res ults for this EDT of prostate procedure are i n metastatic to bone the resul ts section. HC CBC,PLT & AUTO DIFF Routine 12/01/2021 7:12 AM Malignant ne oplasm EDT of prostate metastatic to bone COMPREHENSIVE Routine 12/01/2021 7:12 AM Malignant neoplasm Re sults for this METABOLIC PANEL EDT of prostate procedure ar e in (NON-FASTING) metastatic to bone the resu lts section. HC VENIPUNCTURE Routine 12/01/2021 7:12 AM Malignant neoplasm Results for this EDT of prostate procedure are i n metastatic to bone the resul ts section. DIFFERENTIAL, Routine 11/03/2021 2:30 PM Malignant neoplasm Re sults for this AUTOMATED EDT of prostate procedure are i n metastatic to bone the resul ts section. HEMOGRAM Routine 11/03/2021 2:30 PM Malignant neoplasm Res ults for this EDT of prostate procedure are i n metastatic to bone the resul ts section. HC TESTOSTERONE, SERUM Routine 11/03/2021 2:30 PM Malignant ne oplasm Results for this EDT of prostate procedure are i n metastatic to bone the resul ts section. COMPREHENSIVE Routine 11/03/2021 2:30 PM Malignant neoplasm Re sults for this METABOLIC PANEL EDT of prostate procedure ar e in (NON-FASTING) metastatic to bone the resu lts section. HC PROSTATE SPECIFIC Routine 11/03/2021 2:30 PM Malignant neop lasm Results for this ANTIGEN EDT of prostate procedure are i n metastatic to bone the resul ts section. HC CBC,PLT & AUTO DIFF Routine 11/03/2021 2:30 PM Malignant ne oplasm EDT of prostate metastatic to bone CT SCAN (SCAN) 11/03/2021 12:00 Results f or this AM EDT procedure are i n the results section. from Last 3 Months Results SCAN DOC: LAB (12/22/2021 12:00 AM EDT)Only the most recent of2 resultswithin the time period is included. Narrative 12/22/2021 12:00 AM EDT This result has an attachment that is no t available. Ordered by an unspecified provider. Scanning Provider MEDIA MGR SCAN EXT ORDR/RSLT CT Rad Onc Body Interp Only (12/16/2021 3:52 PM EDT) Anatomical Region Laterality Modality Abdomen Computed Tomography Specimen (Source) Anatomical Location Collection Method / Collectio n Time Received Time / Laterality Volume Impressions 12/16/2021 4:27 PM EDT Radiation treatment planning CT Thank you for letting us participate in the care of this patient. ??If you are a health care provider and have any questi ons regarding this report, please contact the number below. ??For patients who have questions please contact the health care transport nurse that requested your imaging first. ? Electronically signed by: Brian schneider MD, [facility] ([phone]), at 12/16/2021 4:27 PM Narrative 12/16/2021 4:27 PM EDT EXAMINATION: CT RAD ONC BODY INTERP ONLY CLINICAL HISTORY: [address] St IV prostate can cer. Plan for: palliative RT to T / L spine TECHNIQUE: Limited CT without the use of oral or IV contrast enhancement, performed for the purposes of localizati on for radiation treatment. COMPARISON: PET/CT of the pelvis FINDINGS: pelvis: Bowel and mesentery: No obstructive or i nflammatory process Lymph nodes: No adenopathy Osseous structures: No suspicious lesion s Procedure Note Brian Alcazar MD - 12/16/2021Form atting of this note might be different from the original. EXAMINATION: CT RAD ONC BODY INTERP ONLY CLINICAL HISTORY: [address] St IV prostate can cer. Plan for: palliative RT to T / L spine TECHNIQUE: Limited CT without the use of oral or IV contrast enhancement, performed for the purposes of localizati on for radiation treatment. COMPARISON: PET/CT of the pelvis FINDINGS: pelvis: Bowel and mesentery: No obstructive or i nflammatory process Lymph nodes: No adenopathy Osseous structures: No suspicious lesion s IMPRESSION Radiation treatment planning CT Thank you for letting us participate in the care of this patient. If you are a health care provider and have any questi ons regarding this report, please contact the number below. For patients w ho have questions please contact the health care transport nurse that requested your imaging first. Electronically signed by: Brian schneider MD, [facility] ([phone]), at 12/16/2021 4:27 PM Arya Atkinson MD IMG OUTSIDE INTERPRETATION O RDERABLES NM PET CT PSMA Prostate (Illuccix) (12/08/2021 [...] Thank you for referring this patient to [facility]. Thank you for letting us participate in the care of this patient. ??If you are a health care provider and have any questi ons regarding this report, please contact the number below. ??For patients who have questions please contact the health care transport nurse that requested your imaging first. ? Electronically signed by: Nelson Mcdowell MD, [facility] ([phone]), at 12/09/2021 9:34 AM Narrative 12/09/2021 9:34 [...] Thank you for referring this patient to [facility]. Thank you for letting us participate in the care of this patient. If you are a health care provider and have any questi ons regarding this report, please contact the number below. For patients w ho have questions please contact the health care transport nurse that requested your imaging first. Hermilo Valdez MD IMG PET ORDERABLES (ABNORMAL) Hemogram (12/01/2021 7:12 AM EDT)Only the most recent of2 results within the time period is included. Analysis Performed At Patho logist Time Signature WBC 9.0 4.0 - 9.5 DORIAN DAVID x10(3)/[facility] LABORATORY RBC 4.57 (L) 4.58 - [facility] 5.54 [facility] x10(6)/[facility] LABORATORY Hemoglobin 13.6 (L) 13.7 - [facility] 16.5 g/dL [facility] LABORATORY Hematocrit 40.4 (L) 40.5 - [facility] 48.5 % [facility] LABORATORY MCV 88.4 82.9 - [facility] 93.1 [facility] LABORATORY MCH 29.8 27.5 - [facility] 32.1 pg [facility] LABORATORY MCHC 33.7 32.0 - [facility] 35.7 g/dL [facility] LABORATORY Platelets 236 145 - 357 [facility] x10(3)/[facility] LABORATORY RDWSD 44.4 36.0 - [facility] 45.0 [facility] LABORATORY RDWCV 13.8 11.4 - [facility] 13.8 % [facility] LABORATORY MPV 9.1 7.6 - 12.9 [facility] LABORATORY nRBC % Auto 0.0 % [facility] LABORATORY nRBC Abs Auto 0.000 0.000 - [facility] 0.000 [facility] x10(3)/[facility] LABORATORY Specimen Anatomical Collection Method Collection Time Receive d Time (Source) Location / / Volume Laterality Blood 12/01/2021 7:12 AM 7:30 EDT AM EDT Resulting Agency Comment Spec In Lab Hermilo Vadlez MD HEMATOLOGY ORDERABLES Performing Organization Address City/State/Z[place] [address] Differential, Automated (12/01/2021 7:12 AM EDT)Only the most recent of2 results within the time period is included. P athologist Signature Neutrophils % 53.1 % [facility] LABORATORY Neutr Abs (ANC) 4.75 1.70 - [facility] 6.10 [facility] x10(3)/[facility] LABORATORY Lymphocytes % 35.8 % [facility] LABORATORY Lymphocytes Abs 3.2 0.9 - 3.2 [facility] x10(3)/[facility] LABORATORY Monocytes % 7.5 % [facility] Monocyte Abs 0.7 0.3 - 0.9 [facility] x10(3)/[facility] LABORATORY Eosinophils % 2.3 % [facility] LABORATORY Eosinophils Abs 0.2 0.0 - 0.4 [facility] x10(3)/[facility] LABORATORY Basophils % 0.9 % [facility] LABORATORY Basophils Abs 0.1 0.0 - 0.1 [facility] x10(3)/[facility] LABORATORY Immature Gran % 0.40 % [facility] LABORATORY Comment: Immature granulocytes(IG's)percentage an d absolute count will include metamyelocytes, myelocytes, and promyelo cytes. Blood smears from CBCs yielding IG's will be scanned manually for concor dance. If this scan disagrees with the automated IG or if promyelocytes are not ed, a manual differential will be performed. Kady Gran Abs 0.04 0.00 - 0.04 x10(3)/[facility] LABORATORY Specimen Anatomical Collection Method Collection Time Receive d Time (Source) Location / / Volume Laterality Blood 12/01/2021 7:12 AM 7:30 EDT AM EDT Resulting Agency Comment Spec In Lab Hermilo Valdez MD HEMATOLOGY ORDERABLES Performing Organization Address City/State/[place] [address] (ABNORMAL) PSA (Ultrasensitive) (12/01/2021 7:12 AM EDT)Only the most recent of2 resultswithin the time period is included. Analysis Performed At Patho logist Time Signature PSA Total 4.31 (H) 0.00 - [facility] (Ultrasensitiv 4.00 ng/mL [facility] LABORATORY Comment: PLEASE NOTE: The above reference interva l is intended for healthy males with an intact prostate. Values within this refe rence interval may indicate recurrence in men who have undergone radical prosta tectomy. This result was generated using a Ethan Odmingo immunoassay. ??Results obtained from other methods or manufacturers harriet ot be used interchangeably with this method. Specimen Anatomical Collection Method Collection Time Receive d Time (Source) Location / / Volume Laterality Blood 12/01/2021 7:12 AM 2 7:30 EDT AM EDT Resulting Agency Comment Spec In Lab Hermilo Valdez MD CHEMISTRY ORDERABLES Performing Organization Address City/State/Z[place] [address] (ABNORMAL) Comprehensive metabolic panel (non-fasting) (12/01/2021 7:12 AM EDT) Only the most recent of2 resultswithin the time period is included. athologist Signature Glucose Lvl 152 65 - 199 [facility] mg/dL [facility] LABORATORY Comment: Diabetes: >=200 mg/dL plus symp toms BUN 24 (H) 10 - 20 mg/dL [facility] LABORATORY Creatinine 0.90 0.80 - 1.50 mg/dL [facility] LABORATORY Sodium 138 135 - 145 mmol/L [facility] LABORATORY Potassium 4.6 3.5 - 5.0 mmol/L [facility] LABORATORY Comment: Please note: ??Patients with WBC >100,00 0 may have falsely elevated Potassium levels. ??For accurate Potassium quantif ication in these patients send serum separator tube (gold top) for subsequent determinations. ??Contact the Clinical Chemistry Laboratory if there are any qu estions. Chloride 102 98 - 107 mmol/L [facility] LABORATORY CO2 25 22 - 31 mmol/L [facility] LABORATORY Anion Gap 11 5 - 15 mmol/L [facility] LABORATORY Calcium 8.8 8.5 - 10.5 mg/dL [facility] LABORATORY Total Protein 7.2 6.1 - 8.0 g/dL [facility] LABORATORY Albumin 4.5 3.2 - 5.2 g/dL [facility] LABORATORY AST 24 0 - 39 unit/L [facility] LABORATORY ALT 38 0 - 55 unit/L [facility] LAB[facility] Alk Phos 306 (H) 40 - 130 unit/L [facility] LABORATORY Total Bilirubin 0.4 0.2 - 1.3 mg/dL [facility] LABORATORY Estimated GFR 92 >=60 mL/min/1.73 m?? [facility] LABORATORY Comment: This patient's estimated GFR was calcula jovita using the 2020 CKD-EPI equation. The estimated GFR can vary from the anjelica ured GFR by up to 30% in the absence of rapidly changing kidney function. Assess ment of the estimated GFR is not appropriate when creatinine concentratio ns are rapidly changing. For clinical situations in which a more precise estim ate of GFR is necessary, consider alternative methods of GFR estimation guadarrama ch as a 24-hour urine creatinine clearance. Assignment of CKD stage 1-5 for patients with an eGFR near the transition point between stages may be based on clinical assessment of muscle mass and symptoms in addition to eGFR. Specimen Anatomical Collection Method Collection Time Receive d Time (Source) Location / / Volume Laterality Blood 12/01/2021 7:12 AM 2 7:30 EDT AM EDT Resulting Agency Comment Spec In Lab Hermilo Valdez MD CHEMISTRY ORDERABLES Performing Organization Address City/State/[place] [address] Testosterone, total (11/03/2021 2:30 PM EDT) athologist Signature Testo Total 7.15 1.93 - 7.40 [facility] ng/mL [facility] LABORATORY Comment: Pediatric Reference Ranges: ? Males (7 - 18 years) ?Females (8 - 18 years) Ricky Stage ?ng/m l ? ng/ml ? 1 ? <0.0 3 ? <0.03 to 0.06 ? 2 ? <0.0 3 to 4.32 ? <0.03 to 0.10 ? 3 ?0. 65 to 7.78 ? <0.03 to 0.24 ? 4 ?1. 80 to 7.63 ? <0.03 to 0.27 ? 5 ?1. 88 to 8.82 ?0.05 to 0.38 Stated reference ranges derived from rev iew of Ethan Domingo Testosterone II 11/2015, v6.0 Specimen Anatomical Collection Method Collection Time Receive d Time (Source) Location / / Volume Laterality Blood 11/03/2021 2:30 PM 2 2:53 EDT PM EDT Resulting Agency Comment Spec In Lab Woody Mora MD CHEMISTRY ORDERABLES Performing Organization Address City/State/Z[place] [address] SCAN DOC: CT SCAN (11/03/2021 12:00 AM EDT) Narrative 11/03/2021 12:00 AM EDT This result has an attachment that is no t available. Ordered by an unspecified provider. Scanning Provider MEDIA MGR SCAN EXT ORDR/RSLT from Last 3 Months Insurance Payer Benefit Plan / Subscriber ID Effective Dates Phone Addre ss Type Group MEDICARE MEDICARE PART [id number] 2021-Presen [phone] [place] [id number] [facility] [employer] NATIONAL [id number] 2021-Presen [phone] [address] [place] [address] [place], [place] [address] [address] (Home) LIZ MCKEE [id number] Care Teams Satellite Specialist Relationship Specialty Start Date End Date Maxwell Saldivar MD PCP - General Family Medicine 10/12/21 [address] [place] [phone]
--- OUTSIDE RECORDS SUMMARY | 2022-01-19 10:27 | XMS_ITS | Encounter Summary ---
:1950 Author Organization [facility] [place] [address] Care Team Providers Name Role Phone Maxwell Saldivar MD Primary Care Provider Reason for Visit Reason Onset Date Comments Medication Refill 01/05/2022 Abiraterone 750 mg Encounter Details Date Type Department Care Team Description 01/05/2022 Telephone Hematology/Oncology at Emily Humphrey RN Medication Refill [facility] (Abiraterone 750 mg) [address] [place] [phone] Social History Tobacco Use Types Packs/Day Years [...] place to sleep or slept in a long term (including now)? Sex Assigned at Date Recorded Not on file documented as of this encounter Miscellaneous Notes Telephone Encounter - Emily Humphrey RN - 01/05/2022 1:06 PM EDT Oral Chemotherapy Check Note 01/05/2022 Maxwell Kennedy, 1950 Prescriptions for oral chemotherapy were reviewed as follows: Oral Chemotherapy Order abiraterone: Order details: ?? Dose: 750 mg (250 mg tab) ?? Route: oral ?? Quantity to be dispensed #: 90 ?? Number of refills: 11 ?? Instructions: Take three tabs daily on empty stomach , no food for 1 hour befroe and 2 hours after ?? Cycle number and length: Ongoing restarted 01/06/22 ?? Start date: 01/06/22 Plan of care compared to information in the medical record, including note from provider on 01/05/22(date). The prescription was found to be complete and accurate. It was printed, reviewed and signed by provider and manually faxed to [facility] [phone]. Pt will have cmp drawn on 01/19/22, will review with Dr. Mora. Pt will start on potassium 10 meqdaily. documented in this encounter Plan of Treatment Upcoming Encounters Date Type Specialty Care Team Description 02/02/2022 Office Visit Hematology and Oncology Woody Bowles MD [facility] HEMATOLOGY/ONCOL [place], [place] 0375 (Wo rk) documented as of this encounter Visit Diagnoses Not on filedocumented in this encounter Care Teams Shingle Bolt Cutter Relationship Specialty Start Date End Date Maxwell Saldivar MD PCP - General Family Medicine 10/12/21 [address] [place] [phone] documented as of this encounter
--- OUTSIDE RECORDS SUMMARY | 2022-01-19 10:27 | XMS_ITS | Encounter Summary ---
:1950 [place] [address] Care Team Providers Name Role Phone Maxwell Saldivar MD Primary Care Provider Encounter Details Date Type Department Care Team Description 12/01/2021 Orders Only Hematology/Oncology at Woody Mora, Malignant neoplasm of [facility] prostate metastatic to [address] [place] [address] Drive [facility] bone (Primary Dx) [place] [address] HEMATOLOGY/ONCOLOG [phone] [place], [place] [address] Social History Tobacco Use Types Packs/Day Years [...] and Oncology Woody Bowles MD [facility] HEMATOLOGY/ONCOL [place], [place] [address] (Wo rk) Scheduled Orders Name Type Priority Associated Diagnoses Order S chedule PSA (Ultrasensitive) Lab Routine Malignant neoplasm o f Every 4 Weeks for 10 prostate metastatic to Occur rences starting bone 12/01/2021 unti l 12/01/2022 CBC (with Diff) Lab Routine Malignant neoplasm of An ry 4 Weeks for 10 prostate metastatic to Occur rences starting bone 12/01/2021 unti l 12/01/2022 Comprehensive metabolic Lab Routine Malignant neoplas m of Every 4 Weeks for 10 panel (non-fasting) prostate metastatic t o Occurrences starting bone 12/01/2021 unti l 12/01/2022 Testosterone, total Lab Routine Malignant neoplasm of Every 4 Weeks for 10 prostate metastatic to Occur rences starting bone 12/01/2021 unti l 12/01/2022 documented as of this encounter Visit Diagnoses Diagnosis Malignant neoplasm of prostate metastati c to bone - Primary Malignant neoplasm of prostate documented in this encounter Care Teams Superintendent Job Relationship Specialty Start Date End Date Maxwell Saldivar MD PCP - General Family Medicine 10/12/21 [place] [phone] documented as of this encounter
--- OUTSIDE RECORDS SUMMARY | 2022-01-19 10:27 | XMS_ITS | Encounter Summary ---
:1950 Author Organization [facility] [place] [address] Care Team Providers Name Role Phone Maxwell Saldivar MD Primary Care Provider Encounter Details Date Type Department Care Team Description 01/01/2022 Office Visit Radiation Oncology at Arya Atkinson M alignant neoplasm of [facility] prostate metastatic [address] to bone [place], [place] RADIATION ONCOL OGY [address] [place], [place] [phone] (Wo rk) Social History Tobacco Use Types [...] place to sleep or slept in a halfway (including now)? Sex Assigned at Date Recorded Not on file documented as of this encounter Progress Notes Arya Atkinson MD - 01/01/2022 3:30 PM EDT Images from the original note were not included. [facility] Medicine Radiation Oncology Radiation Oncology On-treatment Visit Note Patient ID Patient name: Maxwell Kennedy Date of : 1950 Referring: Dr Valdez PCP: Maxwell Saldivar MD Chief complaint: Cancer Staging Malignant neoplasm of prostate metastatic to bone Staging form: Prostate, AJCC 8th Edition - Clinical: Stage IVB (cNX, cM1b, PSA: 100) - Signed by Tori Sanderson MD on 12/16/2021 Treatment Details Intent: Palliation (of painful bone metastases) Concurrent Therapy: None Modality: 3DCRT Treatment Site 1 RT S/I Prescribed Dose 20 Gy in 5 fractions Treatment Site 2 RT Prox Femur Prescribed Dose 8 Gy in 1 fraction Current Dose: 20 Gy in 5 fractions - RT S/I 8Gy in 1 fraction - RT prox femur Supervisor Glycerin Nelson from Current Plan: Interval Clinical Course General: No changes since last seen. Started / completed this week. Pain: Pain score today is 5/10 in his right sacrum and femur. It can sometimes increase to 7/10. Performance Status KPS Score ECOG Grade Definition 90-100 0 Fully active, able to carry on all pre-disease performance without restriction XX 70-80 1 Restricted in physically strenuous activity but ambulatory and able to carry out work of a light or sedentary nature, e.g., light house work, office work 50-60 2 Ambulatory and capable of all selfcare but unable to carry out any work activities; up and about more than 50% of waking hours 30-40 3 Capable of only limited selfcare; confined to bed or chair more than 50% of waking hours 10-20 4 Completely disabled; cannot carry on any selfcare; totally confined to bed or chair Medications Medications 12/29/21 1549 Medication Sig Taking? lisinopriL (Zestril) 10 mg Tablet Take 10 mg by mouth daily. abiraterone (Zytiga) 250 mg Tablet Take 4 tablets by mouth daily. Take 4 tabs by mouth once daily onempty stomach, no food for 2 hours before or 1-1.5hrs after. hydroCHLOROthiazide (Hydrodiuril) 12.5 mg Tablet Take 12.5 mg by mouth daily. predniSONE (Deltasone) 5 mg Tablet Take 1 tablet by mouth daily. oxyCODONE (Roxicodone) 5 mg Tablet Take 1 tablet by mouth every 4 hours as needed for Pain. Patient not taking: No sig reported Exam Vitals: There were no vitals taken for this visit. General: Appears well, in no distress Imaging/Labs Interval setup imaging has been checked and approved. See [facility]ria for details. Impression/Plan Tolerance to radiotherapy: Completes RT today. Followup: RV / TOV in 6-8 weeks to assess response. No orders of the defined types were placed in this encounter. ??? [facility] ([facility] ??? [employer] on Cancer ([employer]) Accredited Cancer Program ??? [employer] ([employer]) Accredited Radiation Oncology Program documented in this encounter Plan of Treatment Upcoming Encounters Date Type Specialty Care Team Description 02/02/2022 Office Visit Hematology and Oncology Woody Bowles MD [facility] HEMATOLOGY/ONCOL LU[place]he[place], [place] [address] (Wo rk) documented as of this encounter Visit Diagnoses Diagnosis Malignant neoplasm of prostate metastati c to bone Malignant neoplasm of prostate documented in this encounter Care Teams Coffee Shop Attendant Relationship Specialty Start Date End Date Maxwell Saldivar MD PCP - General Family Medicine 10/12/21 [address] [place] [phone] documented as of this encounter
--- OUTSIDE RECORDS SUMMARY | 2022-01-19 10:27 | XMS_ITS | Encounter Summary ---
:1950 Author Organization [facility] [place] [address] Care Team Providers Name Role Phone Maxwell Saldivar MD Primary Care Provider Reason for Visit Consultation (Routine) - Closed Specialty Diagnoses / Procedures Referred By Contact Refer red To Contact Radiation Oncology Diagnoses Malignant neoplasm of prostate metastatic to bone Hermilo Valdez Stj Rad Onc Treatment MD [address] [place] [address] [place] [phone] Fax: Referral ID Status Reason Start Date Expiration Date Visits V isits Requested Authorized [id number] Closed Consult, 12/01/2021 12/01/2022 1 1 Test & Treat Encounter Details Date Type Department Care Team Description 12/16/2021 Office Visit Radiation Oncology at Arya Atkinson M alignant neoplasm of [facility] prostate metastatic [address] [place] [address] DR to bone [place], [place] RADIATION ONCOL OGY [address] [place], [place] [phone] (Wo rk) Social History Tobacco Use Types [...] Sign Reading Time Taken Comments Blood Pressure 143/76 12/16/2021 1:00 PM EDT Pulse 80 12/16/2021 1:00 PM EDT Temperature 36.8 ??C (98.3 ??F) 12/16/2021 1:00 PM EDT Respiratory Rate 17 12/16/2021 1:00 PM EDT Oxygen Saturation 100% 12/16/2021 1:00 PM EDT Inhaled Oxygen Concentration - - Weight 84.8 kg (187 lb) 12/16/2021 1:00 PM EDT Height - - Body Mass Index 27.23 12/01/2021 8:19 AM EDT documented in this encounter Progress Notes Tori Sanderson MD - 12/16/2021 1:30 PM EDT Images from the original note were not included. Radiation Oncology Consult Note Arya Atkinson MD, MS [facility] PATIENT IDENTIFICATION: PATIENT NAME: Maxwell Kennedy DATE OF : 1950 REFERRING PROVIDER: Hermilo Valdez MD PRIMARY CARE PROVIDER: Maxwell Saldivar MD REASON FOR CONSULTATION: Cancer Staging Malignant neoplasm of prostate metastatic to bone Staging form: Prostate, AJCC 8th Edition - Clinical: Stage IVB (cNX, cM1b, PSA: 100) - Signed by Tori Sanderson MD on 12/16/2021 DATE OF SERVICE: 12/16/2021 HISTORY OF PRESENT ILLNESS: Maxwell Kennedy is a 71 y.o. male with newly diagnosed metastatic prostate cancer. Maxwell initially presented to the ED in [place] with chest pain radiating to his back. CT was performed on 08/21/21 which showed multiple bony lesions. PSA was found to be 100 at that time. Maxwell underwentprostate biopsy on 10/14/21 which showed GS 4+5 with all cores positive. Maxwell met with Dr. Valdez on 11/03/21 where is was started on Degarelix and denosumab. Abiraterone was started on 12/02/21, following insurance approval. PSA on 12/01/21 was 4.31. Maxwell had a PSMA pet on 12/08/21 which showed many bone mets and his prostate primary. He is referred for consideration of palliative RT. REVIEW OF SYSTEMS: On further questioning, he reports feeling well overall. He reports today his pain being 3-5/10, mainly in his pelvis. He notes taking MSIR occasionally. He has a prescription for oxycodone but hasn't required it yet. He notes some minimal urgency during the day with urination. Nocturia 1-2x nightly. Notes good stream. He had COVID three weeks ago. A comprehensive 14 point review of systems was conducted with this patient and is otherwise negativeexcept as documented above. PAST MEDICAL AND SURGICAL HISTORY: Past Medical History: Diagnosis Date ??? Prostate cancer Past Surgical History: Procedure Laterality Date ??? TONSILLECTOMY Bilateral CONTRAINDICATIONS TO RADIATION THERAPY: None Prior Radiation to this Site: No Active Connective Tissue Disease (Lupus or Scleroderma) No MEDICATIONS AND ALLERGIES: Medications 12/16/21 1330 Medication Sig Taking? abiraterone (Zytiga) 250 mg Tablet Take 4 tablets by mouth daily. Take 4 tabs by mouth once daily onempty stomach, no food for 2 hours before or 1-1.5hrs after. Yes hydroCHLOROthiazide (Hydrodiuril) 12.5 mg Tablet Take 12.5 mg by mouth daily. Yes lisinopriL (Zestril) 30 mg Tablet Take 30 mg by mouth daily. Yes morphine IR (MSIR) 15 mg Tablet Take 15 mg by mouth every 4 hours as needed for Pain. Yes predniSONE (Deltasone) 5 mg Tablet Take 1 tablet by mouth daily. Yes oxyCODONE (Roxicodone) 5 mg Tablet Take 1 tablet by mouth every 4 hours as needed for Pain. 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 Breast Cancer Sister ??? Lung Cancer Sister PHYSICAL EXAM BP 143/76 (Patient Position: Sitting) Pulse 80 Temp 36.8 ??C (98.3 ??F) Resp 17 Wt 84.8 kg (187 lb) SpO2 100% BMI 27.23 kg/m?? General: alert, appears stated age, and in no distress sitting in exam room with daughter at side Bone: Tenderness over anterior right and left femur, tenderness of sacrum R>L TODAY'S PERFORMANCE STATUS: KPS Score ECOG Grade Definition 90-100 0 Fully active, able to carry on all pre-disease performance without restriction xx 70-80 1 Restricted in physically strenuous activity [...] selfcare; totally confined to bed or chair IMAGING REVIEW: 12/08/21 PET/CT Preventative Maintenance Technician Images: PATHOLOGY REVIEW: Source: Prostate Provider / Location: [facility]- read at [facility] by Dhara Senior MD Date: 10/14/21 Histology / Grade 4+5 Other All cores positive ASSESSMENT / PLAN: Maxwell Kennedy is a 71 y.o. with newly diagnosed metastatic prostate cancer. He is currently on systemic therapy (abiraterone, denosumab, and degarelix). Maxwell has numerous bone metastases, as seen on PET/CT on 12/08, and therefore there is no role for XRTto the prostate. In regards to his pain, he has several bony metastases. Per our discussion today and physical exam, Maxwell has several sites of bony discomfort, mostly located in the lateral right proximal femur and hisright S/I. We discussed the use of temporary markers on the skin at time of CT simulation to help correlate pain to bony metastases. These areas will be treatable with XRT for the purposes of pain control. There is a 60-70% likelihood of some response to radiation. Bony pain typically responds to radiation by 6 weeks, though response time can vary up to 3 months. We discussed: - Rationale for treating bony metastases for pain control - No changes to OS with treatment of these sites - No role for radiation to prostate in the setting of diffuse metastatic disease - Role of systemic therapy in management of metastatic prostate cancer. - Castrate vs. Non-castrate resistant metastatic prostate cancer, currently given his PSA response, he continues to be responsive to ADT - Logistics of radiation planning and treatment - Side effects will varying depending on which metastatic sites we end up treating. We discussed treatment to proximal femurs and pelvis. Side effects could include, but not limited to, fatigue, diarrhea, decreased blood counts Maxwell was agreeable to plan of determing sites of treatment base on external temporary marker placement on skin to correlate bony metastatic disease and pain. All of Maxwell's questions were answered to his apparent satisfaction. Consent was signed and CT simulation was completed following consult. Plan to start XRT within the next week. SUMMARY OF PLAN / RECOMMENDATION: 1. Intent of therapy: Palliative 2. Clinical Trial Availability: No 3. Plan for 20Gy in 5fx to the sacrum 4. Plan for 8Gy in 1fx to Right proximal femur 5. CT simulation completed today 6. Continued systemic therapy per Dr. Valdez, likely transferring to Dr Morgan Sanderson MD PGY3 Attending MD Attestation: I have seen the patient in person, reviewed and edited the resident's above history and I agree withthe details as written. The assessment and plan were formulated in discussion with me and I agree with them as documented. In brief, Maxwell Kennedy is a 71 year old man with Stage IV prostate cancer. He has bony pain attributable to metastatic disease and as such palliative RT to these areas was reviewed today. Consent/simulation obtained today with RT likely to begin next week. At least 60 minutes were spent in providing care to this patient today as reflected by the followingactivities: - review of his medical record in the chart, including interpretation of imaging, laboratory and pathologic studies referenced above - discussion of the above with the patient as part of shared medical decision making - documenting the outcome of today's visit as above Arya Atkinson MD, MS Abrading Machine Tender Radiation Oncology Jaci Sykes RN - 12/16/2021 1:30 PM EDT RADIATION ONCOLOGY NURSING INITIAL NURSING ASSESSMENT IDENTIFICATION: Maxwell Kennedy is a 71 y.o. year-old male with Prostate CA w/ Bone mets PRESENTING SYMPTOMS/CHIEF COMPLAINT: REVIEW OF SYSTEMS: Review of Systems - Oncology IN THE PAST 12 MONTHS HAVE YOU: Fallen more than one time? No Injured yourself as result of the fall? No Experienced difficulty with walking/problems with balance? No Do you use any assistive devices? No Any history of collagen vascular diseases:No Any Implanted Devices/Hardware: No If yes please put alert in ARIA patient summary Prior Radiotherapy: No Prior Chemotherapy: No Prior Hormone Therapy: Yes Other: Patient denies history of Scleroderma and Lupus LEARNING ASSESSMENT REVIEWED: Yes ADVANCED DIRECTIVE: Not discussed today. PAIN ASSESSMENT: [3] out of 10 eD-H Adult PCS Flow Sheet if 4 or above SOCIAL ASSESSMENT: See EDH social assessment information entered. Support Systems: Vesna Amin (Daughter) Barriers to treatment: partner with alzhemiers Referrals/Interventions: pupil personnel worker visit on day per routine. RADIATION SPECIFIC TEACHING:Will provide the following information on day [facility] Radiation Therapy and You Site specific teaching : Other: PLAN: Per documented in this encounter Plan of Treatment Upcoming Encounters Date Type Specialty Care Team Description 02/02/2022 Office Visit Hematology and Oncology Woody Bowles MD [facility] HEMATOLOGY/ONCOL [place], [place] [address] (Wo rk) Scheduled Referrals Name Type Priority Associated Diagnoses Order S chedule Referral to Outpatient Referral Routine Malignant neoplasm Or dered: Radiation Oncology of prostate 2 metastatic to bone documented as of this encounter Visit Diagnoses Diagnosis Malignant neoplasm of prostate metastati c to bone Malignant neoplasm of prostate documented in this encounter Care Teams Supervisor Cabinetmaker Relationship Specialty Start Date End Date Maxwell Saldivar MD PCP - General Family Medicine 10/12/21 [address] [place] [phone] documented as of this encounter
--- OUTSIDE RECORDS SUMMARY | 2022-01-19 10:28 | XMS_ITS | Encounter Summary ---
:1950 Author Organization [facility] [place] [address] Care Team Providers Name Role Phone Maxwell Saldivar MD Primary Care Provider Reason for Referral Consultation (Routine) - Closed Specialty Diagnoses / Procedures Referred By Contact Refer red To Contact Radiation Oncology Diagnoses Malignant neoplasm of prostate metastatic to bone Hermilo Valdez St Rad Onc Treatment MD [address] [place] [address] [place] [phone] Fax: Referral ID Status Reason Start Date Expiration Date Visits V isits Requested Authorized [id number] Closed Consult, 12/01/2021 12/01/2022 1 1 Test & Treat Reason for Visit Reason Comments Follow-up Encounter Details Date Type Department Care Team Description 12/01/2021 Office Visit Hematology and Dong Valdez MD [facility] [place] [address] Malignant neoplasm of Oncology at [facility] Janine Ahmadi APRN [facility] HEMATOLOGY [place] [address] [place] [address] Social History Tobacco Use Types Packs/Day Years [...] Sign Reading Time Taken Comments Blood Pressure 146/72 12/01/2021 8:19 AM EDT Pulse 78 12/01/2021 8:19 AM EDT Temperature 36.2 ??C (97.2 ??F) 12/01/2021 8:19 AM EDT Respiratory Rate 16 12/01/2021 8:19 AM EDT Oxygen Saturation 100% 12/01/2021 8:19 AM EDT Inhaled Oxygen Concentration - - Weight 84.2 kg (185 lb 10 oz) 12/01/2021 8:19 AM EDT Height 176.5 cm (5' 9.49) 12/01/2021 8:19 AM EDT Body Mass Index 27.03 12/01/2021 8:19 AM EDT documented in this encounter Progress Notes Hermilo Valdez MD - 12/01/2021 8:30 AM EDT OUTPATIENT HEMATOLOGY/ ONCOLOGY CONSULTATION HISTORY PRESENT ILLNESS This patient is a 71 y.o. male presenting for evaluation of metastatic prostate cancer. 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 He presented to an emergency room in [place], where he turner, with chest pain radiating [...] fevers, chills, night sweats. No urologic symptoms. Relevant PMHx/ risk factors: ??? HTN Work up/ Pertinent Data ??? Prostate biopsy- many cores involved. Max Nneka=9 ??? CT (from [place], for back/ chest pain)- multiple spinal and sacral bone lesions, concerning for mets ??? PWH=360 Treatment Course ?? 11/03/21- Degarilex and Abiraterone INTERIM HISTORY Doing well. No new issues. Not requiring many pain meds. Tolerated first dose well, except for skin reaction. 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 lisinopriL (Zestril) 30 mg Tablet Take 30 mg by mouth daily. Yes predniSONE (Deltasone) 5 mg Tablet Take 1 tablet by mouth daily. Yes abiraterone (Zytiga) 500 mg Tablet Take 2 tablets by mouth daily. hydroCHLOROthiazide (Hydrodiuril) 12.5 mg Tablet Take 12.5 mg by mouth daily. morphine IR (MSIR) 15 mg Tablet Take 15 mg by mouth every 4 hours as needed for Pain. oxyCODONE (Roxicodone) 5 mg Tablet Take 1 tablet by mouth every 4 hours as needed for Pain. PAST MEDICAL HISTORY- reviewed Patient Active Problem [...] 24 hrs: Temp Pulse Resp BP SpO2 12/01/21 0819 36.2 ??C (97.2 ??F) 78 16 146/72 100 % NAD, pleasant, Exam not repeated LABORATORY EVALUATION Recent Results (from the past 24 hour(s)) PSA (Ultrasensitive) Result Value Ref Range PSA Total (Ultrasensitive) 4.31 (H) 0.00 - 4.00 ng/mL Comprehensive metabolic panel (non-fasting) Result Value Ref Range Glucose Lvl 152 65 - 199 mg/dL BUN 24 (H) 10 - 20 mg/dL Creatinine 0.90 0.80 - 1.50 mg/dL Sodium 138 135 - 145 mmol/L Potassium 4.6 3.5 - 5.0 mmol/L Chloride 102 98 - 107 mmol/L CO2 25 22 - 31 mmol/L Anion Gap 11 5 - 15 mmol/L Calcium 8.8 8.5 - 10.5 mg/dL Total Protein 7.2 6.1 - 8.0 g/dL Albumin 4.5 3.2 - 5.2 g/dL AST 24 0 - 39 unit/L ALT 38 0 - 55 unit/L Alk Phos 306 (H) 40 - 130 unit/L Total Bilirubin 0.4 0.2 - 1.3 mg/dL Estimated GFR 92 >=60 mL/min/1.73 m?? Hemogram Result Value Ref Range WBC 9.0 4.0 - 9.5 x10(3)/mcL RBC 4.57 (L) 4.58 - 5.54 x10(6)/mcL Hemoglobin 13.6 (L) 13.7 - 16.5 g/dL Hematocrit 40.4 (L) 40.5 - 48.5 % MCV 88.4 82.9 - 93.1 fL MCH 29.8 27.5 - 32.1 pg MCHC 33.7 32.0 - 35.7 g/dL Platelets 236 145 - 357 x10(3)/mcL RDWSD 44.4 36.0 - 45.0 fL RDWCV 13.8 11.4 - 13.8 % MPV 9.1 7.6 - 12.9 fL nRBC % Auto 0.0 % nRBC Abs Auto 0.000 0.000 - 0.000 x10(3)/mcL Differential, Automated Result Value Ref Range Neutrophils % 53.1 % Neutr Abs (ANC) 4.75 1.70 - 6.10 x10(3)/mcL Lymphocytes % 35.8 % Lymphocytes Abs 3.2 0.9 - 3.2 x10(3)/mcL Monocytes % 7.5 % Monocyte Abs 0.7 0.3 - 0.9 x10(3)/mcL Eosinophils % 2.3 % Eosinophils Abs 0.2 0.0 - 0.4 x10(3)/mcL Basophils % 0.9 % Basophils Abs 0.1 0.0 - 0.1 x10(3)/mcL Immature Gran % 0.40 % Kady Gran Abs 0.04 0.00 - 0.04 x10(3)/mcL ASSESSMENT: Maxwell Kennedy is a 71 y.o. male presents with likely metastatic prostate cancer. He presented to ED with chest/ back pain, found to have multiple bony lesions. PSA was 125. Prostate biopsy revealed max Nneka 9 prostate adenocarcinoma. PET due for next week. Will give second dose of degarilex today, along with Denosumab. Will refer for consideration of XRT to prostate, and perhaps any PET avid lesions. Awaiting some financial help for abiraterone. I have asked RN to help. Will plan on seeing back in 4 weeks, BUT may change to [facility] if there are openings. Hermilo Valdez MD Pager: [phone] 12/01/2021 documented in this encounter Plan of Treatment Upcoming Encounters Date Type Specialty Care Team Description 02/02/2022 Office Visit Hematology and Oncology Woody Bowles MD [facility] HEMATOLOGY/ONCOL [place] [address] (Wo rk) Scheduled Referrals Name Type Priority Associated Diagnoses Order S chedule Referral to Outpatient Referral Routine Malignant neoplasm Or dered: Radiation Oncology of prostate 2 metastatic to bone documented as of this encounter Visit Diagnoses Diagnosis Malignant neoplasm of prostate metastati c to bone Malignant neoplasm of prostate documented in this encounter Care Teams Director Intelligence Analysis Programs Relationship Specialty Start Date End Date Maxwell Saldivar MD PCP - General Family Medicine 10/12/21 [address] [place] [address] documented as of this encounter
--- OUTSIDE RECORDS SUMMARY | 2022-01-19 10:28 | XMS_ITS | Encounter Summary ---
:1950 Author Organization [place] [address] Care Team Providers Name Role Phone Maxwell Saldivar MD Primary Care Provider Encounter Details Date Type Department Care Team Description 11/24/2021 Orders Only Hematology and Oncology at Hermlio Driscoll MD [facility] [place] [address] [place] [address] [phone] Social History Tobacco Use Types Packs/Day Years [...] Visit Hematology and Oncology Woody Bowles MD [facility] HEMATOLOGY/ONCOL [place], [place] [address] (Wo rk) documented as of this encounter Visit Diagnoses Not on filedocumented in this encounter Care Teams Bow Making Machine Operator Relationship Specialty Start Date End Date Maxwell Saldivar MD PCP - General Family Medicine 10/12/21 [place] [address] documented as of this encounter
--- OUTSIDE RECORDS SUMMARY | 2022-01-19 10:28 | XMS_ITS | Encounter Summary ---
:1950 Author Organization [facility] Address [address] [facility] [address] [facility] [address] [place] [address] Care Team Providers Name Role Phone Maxwell Saldivar MD Primary Care Provider Reason for Visit Reason Comments Specialty Pharmacy Review Abiraterone 500mg tablet Encounter Details Date Type Department Care Team Description 11/03/2021 Specialty Pharmacy Pharmacy at [facility] Review (A biraterone Drive 500mg tablet) [place] [id number] Social History Tobacco Use Types Packs/Day Years [...] place to sleep or slept in a nursing home (including now)? Sex Assigned at Date Recorded Not on file documented as of this encounter Progress Notes Magalis Medrano - 11/03/2021 11:59 PM EDT The [facility] has completed a benefits investigation for Maxwell Kennedy to review their eligibility to fill at [facility]. Per patient's medication list they are prescribed Abiraterone 500mg tablet and the medication is not able to be filled at the [facility]. Patient does not have rx insurance- they were referred to [facility] due to high cost documented in this encounter Plan of Treatment Upcoming Encounters Date Type Specialty Care Team Description 02/02/2022 Office Visit Hematology and Oncology Woody Bowles MD [facility] HEMATOLOGY/ONCOL [place], [place] [address] (Wo rk) documented as of this encounter Visit Diagnoses Not on filedocumented in this encounter Care Teams Automation Control Integrator Relationship Specialty Start Date End Date Maxwell Saldivar MD PCP - General Family Medicine 10/12/21 [place] [phone] documented as of this encounter
--- OUTSIDE RECORDS SUMMARY | 2022-01-19 10:28 | XMS_ITS | Encounter Summary ---
:1950 Author Organization [facility] [place] [address] Care Team Providers Name Role Phone Maxwell Saldivar MD Primary Care Provider Encounter Details Date Type Department Care Team Description 11/03/2021 Hospital Encounter Hematology and Maligna nt neoplasm of Oncology at [facility] prostate metastatic to [facility] [place] [address] Social History Tobacco Use Types Packs/Day [...] Sig Dispensed Refills Start Date End Date abiraterone (Zytiga) 500 Take 2 tablets by 30 tablet 10/1311/23/2021 mg Tablet mouth daily. documented as of this encounter Plan of Treatment Upcoming Encounters Date Type Specialty Care Team Description 02/02/2022 Office Visit Hematology and Oncology Woody Bowles MD [facility] HEMATOLOGY/ONCOL [place], [place] [address] (Wo rk) Scheduled Orders Name Type Priority Associated Diagnoses Order S chedule CBC (with Diff) Lab Routine Malignant neoplasm of 1 O ccurrences starting prostate metastatic to 11/03 until bone 11/03/2021 Comprehensive metabolic Lab Routine Malignant neoplas m of 1 Occurrences starting panel (non-fasting) prostate metastatic t o 11/03/2021 until bone 11/03/2021 PSA (Ultrasensitive) Lab Routine Malignant neoplasm o f 1 Occurrences starting prostate metastatic to 11/03 until bone 11/03/2021 documented as of this encounter Procedures Procedure Name Priority Date/Time Associated Comments Diagnosis HEMOGRAM Routine 11/03/2021 2:30 PM Malignant neoplasm [...] oplasm EDT of prostate metastatic to bone HC TESTOSTERONE, SERUM Routine 11/03/2021 2:30 PM Malignant ne oplasm Results for this EDT of prostate procedure are i n metastatic to bone the resul ts section. HC PROSTATE SPECIFIC Routine 11/03/2021 2:30 PM Malignant neop lasm Results for this ANTIGEN EDT of prostate procedure are i n metastatic to bone the resul ts section. COMPREHENSIVE Routine 11/03/2021 2:30 PM Malignant neoplasm Re sults for this METABOLIC PANEL EDT of prostate procedure ar e in (NON-FASTING) metastatic to bone the resu lts section. documented in this encounter Results (ABNORMAL) Differential, Automated (11/03/2021 2:30 PM EDT) [facility] Method Time Signature Neutrophils % 61.3 % [facility] Neutr Abs (ANC) 7.29 (H) 1.70 - [facility] 6.10 [facility] x10(3)/[facility] LABORATORY Lymphocytes % 28.2 % [facility] Lymphocytes Abs 3.4 (H) 0.9 - 3.2 [facility] x10(3)/[facility] LABORATORY Monocytes % 7.2 % [facility] Monocyte Abs 0.9 0.3 - 0.9 [facility] x10(3)/[facility] LABORATORY Eosinophils % 2.0 % [facility] Eosinophils Abs 0.2 0.0 - 0.4 [facility] x10(3)/[facility] LABORATORY Basophils % 0.6 % [facility] Basophils Abs 0.1 0.0 - 0.1 [facility] x10(3)/[facility] LABORATORY Immature Gran % 0.70 % [facility] Comment: Immature granulocytes(IG's)percentage an d absolute count will include metamyelocytes, myelocytes, and promyelo cytes. Blood smears from CBCs yielding IG's will be scanned manually for concor dance. If this scan disagrees with the automated IG or if promyelocytes are not ed, a manual differential will be performed. Kady Gran Abs 0.08 (H) 0.00 - 0.04 x10(3)/[facility] LABORATORY Specimen Anatomical Collection Method Collection Time Receive d Time (Source) Location / / Volume Laterality Blood 11/03/2021 2:30 PM 2 2:53 EDT PM EDT Resulting Agency Comment Spec In Lab Woody Mora MD HEMATOLOGY ORDERABLES Performing Organization Address City/State/[place] [address] (ABNORMAL) Hemogram (11/03/2021 2:30 PM EDT) Analysis Performed At Patho logist Time Signature WBC 11.9 (H) 4.0 - 9.5 [place] [facility] x10(3)/[facility] LABORATORY RBC 4.77 4.58 - [place] 5.54 [facility] x10(6)/[facility] LABORATORY Hemoglobin 14.2 13.7 - [place] [facility] 16.5 g/dL [facility] LABORATORY Hematocrit 41.8 40.5 - [place] [facility] 48.5 % [facility] LABORATORY MCV 87.6 82.9 - [place] 93.1 [facility] LABORATORY MCH 29.8 27.5 - [place] [facility] 32.1 pg [facility] LABORATORY MCHC 34.0 32.0 - [place] [facility] 35.7 g/dL [facility] LABORATORY Platelets 228 145 - 357 [facility] x10(3)/[facility] LABORATORY RDWSD 42.7 36.0 - [place] [facility] 45.0 [facility] LABORATORY RDWCV 13.3 11.4 - [place] [facility] 13.8 % [facility] LABORATORY MPV 8.8 7.6 - 12.9 [facility] nRBC % Auto 0.0 % [facility] nRBC Abs Auto 0.000 0.000 - [place] [facility] 0.000 [facility] x10(3)/[facility] LABORATORY Specimen Anatomical Collection Method Collection Time Receive d Time (Source) Location / / Volume Laterality Blood 11/03/2021 2:30 PM 2 2:53 EDT PM EDT Resulting Agency Comment Spec In Lab Woody Mora MD HEMATOLOGY ORDERABLES Performing Organization Address City/State/[place] [address] Testosterone, total (11/03/2021 2:30 PM EDT) P athologist Signature Testo Total 7.15 1.93 - 7.40 Noise Freaks[employer]OCK ng/mL [facility] LABORATORY Comment: Pediatric Reference Ranges: ? Males [...] Organization Address City/State/ZIP Code Phon e Number DORIAN [facility] [place] [address] (ABNORMAL) Comprehensive metabolic panel (non-fasting) (11/03/2021 2:30 PM EDT) athologist Signature Glucose Lvl 107 65 - 199 [facility] mg/dL [facility] LABORATORY Comment: Diabetes: >=200 mg/dL plus symp toms BUN 13 10 - 20 mg/dL [facility]OR[facility] Creatinine 0.84 0.80 - 1.50 mg/dL [facility] LABOR[facility] Sodium 138 135 - 145 mmol/L [facility] Potassium 4.1 3.5 - 5.0 mmol/L [facility] Comment: Please note: ??Patients with WBC >100,00 0 may have falsely elevated Potassium levels. ??For accurate Potassium quantif ication in these patients send serum separator tube (gold top) for subsequent determinations. ??Contact the Clinical Chemistry Laboratory if there are any qu estions. Chloride 100 98 - 107 mmol/L [facility] CO2 26 22 - 31 mmol/L [facility] Anion Gap 12 5 - 15 mmol/L [facility] Calcium 9.6 8.5 - 10.5 mg/dL [facility] Total Protein 7.8 6.1 - 8.0 g/dL [facility] Albumin 4.8 3.2 - 5.2 g/dL [facility] AST 22 0 - 39 unit/L [facility] ALT 18 0 - 55 unit/L [facility] Alk Phos 404 (H) 40 - 130 unit/L [facility] Total Bilirubin 0.7 0.2 - 1.3 mg/dL [facility] LABOR[facility] Estimated GFR 94 >=60 mL/min/1.73 m?? [facility] Comment: This patient's estimated GFR [...] Mora MD CHEMISTRY ORDERABLES Performing Organization Address [facility] [place] [address] (ABNORMAL) PSA (Ultrasensitive) (11/03/2021 2:30 PM EDT) [facility] Method Time Signature PSA Total 100.00 (H) 0.00 - [facility] (Ultrasensitiv 4.00 ng/mL [facility] LABORATORY Comment: PLEASE NOTE: The above reference interva l is intended for healthy males with an intact prostate. Values within this refe rence interval may indicate recurrence in men who have undergone radical prosta tectomy. This result was generated using a Ethan Domingo immunoassay. ??Results obtained from other methods or manufacturers harriet ot be used interchangeably with this method. Specimen Anatomical Collection Method Collection Time Receive d Time (Source) Location / / Volume Laterality Blood 11/03/2021 2:30 PM 2 2:53 EDT PM EDT Resulting Agency Comment Spec In Lab Woody Mora MD CHEMISTRY ORDERABLES Performing Organization Address [facility] [place] [address] documented in this encounter Visit Diagnoses Diagnosis Malignant neoplasm of prostate metastati c to bone Malignant neoplasm of prostate documented in this encounter Care Teams Property Insurance Claims Examiner Relationship Specialty Start Date End Date Maxwell Saldivar MD PCP - General Family Medicine 10/12/21 [place] [address] documented as of this encounter
--- OUTSIDE RECORDS SUMMARY | 2022-01-19 10:28 | XMS_ITS | Encounter Summary ---
:1950 Author Organization [facility] [place] [address] Care Team Providers Name Role Phone Maxwell Saldivar MD Primary Care Provider Encounter Details Date Type Department Care Team Description 12/01/2021 Hospital Encounter Hematology and Maligna nt neoplasm of Oncology at [facility] prostate metastatic to [facility] [place] [address] Social History Tobacco Use Types Packs/Day [...] place to sleep or slept in a senior living (including now)? Sex Assigned at Date Recorded [...] Woody Bowles MD [facility] HEMATOLOGY/ONCOL [place], [place] 0[address] (Wo rk) documented as of this encounter Procedures Procedure Name Priority Date/Time Associated Comments Diagnosis HEMOGRAM Routine 12/01/2021 7:12 AM Malignant neoplasm [...] EDT of prostate metastatic to bone HC VENIPUNCTURE Routine 12/01/2021 7:12 AM Malignant neoplasm Results for this EDT of prostate procedure are i n metastatic to bone the resul ts section. COMPREHENSIVE Routine 12/01/2021 7:12 AM Malignant neoplasm Re sults for this METABOLIC PANEL EDT of prostate procedure ar e in (NON-FASTING) metastatic to bone the resu lts section. documented in this encounter Results Differential, Automated (12/01/2021 7:12 AM EDT) P athologist Signature Neutrophils % 53.1 % [facility] LABORATORY Neutr Abs (ANC) 4.75 1.70 - [facility] 6.10 [facility] x10(3)/[facility] LABORATORY Lymphocytes % 35.8 % [facility] LABORATORY Lymphocytes Abs 3.2 0.9 - 3.2 [facility] x10(3)/[facility] LABORATORY Monocytes % 7.5 % [facility] LABORATORY Monocyte Abs 0.7 0.3 - 0.9 [facility] x10(3)/[facility] LABORATORY Eosinophils % 2.3 % [facility]ORATORY Eosinophils Abs 0.2 0.0 - 0.4 [facility] x10(3)/[facility] LABORATORY Basophils % 0.9 % [facility] LABORATORY Basophils Abs 0.1 0.0 - 0.1 [facility] x10(3)/[facility] LABORATORY Immature Gran % 0.40 % [facility] LABORATORY Comment: Immature granulocytes(IG's)percentage an d absolute count will include metamyelocytes, myelocytes, and promyelo cytes. Blood smears from CBCs yielding IG's will be scanned manually for concor dance. If this scan disagrees with the automated IG or if promyelocytes are not ed, a manual differential will be performed. Kady Gran Abs 0.04 0.00 - 0.04 x10(3)/[facility] Y [facility] LABORATORY Specimen Anatomical Collection Method Collection Time Receive d Time (Source) Location / / Volume Laterality Blood 12/01/2021 7:12 AM 7:30 EDT AM EDT Resulting Agency Comment Spec In Lab Hermilo Valdez MD HEMATOLOGY ORDERABLES Performing Organization Address City/State/[place] [address] (ABNORMAL) Hemogram (12/01/2021 7:12 AM EDT) Analysis Performed At Patho logist Time Signature WBC 9.0 4.0 - 9.5 [facility] x10(3)/[facility] LABORATORY RBC 4.57 (L) 4.58 - [place] JOANN 5.54 [facility] x10(6)/[facility] LABORATORY Hemoglobin 13.6 (L) 13.7 - [facility] 16.[facility] g/dL [facility] LABORATORY Hematocrit 40.4 (L) 40.5 - [facility] 48.5 % [facility] LABORATORY MCV 88.4 82.9 - [facility] 93.1 [facility] LABORATORY MCH 29.8 27.5 - [place] JOANN 32.1 pg [facility] LABORATORY MCHC 33.7 32.0 - [facility] JOANN 35.7 g/dL [facility] LABORATORY Platelets 236 145 - 357 [facility] x10(3)/[facility] LABORATORY RDWSD 44.4 36.0 - [facility] 45.0 [facility] LABORATORY RDWCV 13.8 11.4 - [facility] 13.8 % [facility] LABORATORY MPV 9.1 7.6 - 12.9 [facility] LABORATORY nRBC % Auto 0.0 % [facility] LABORATORY nRBC Abs Auto 0.000 0.000 - [facility] 0.000 [facility] x10(3)/[facility] LABORATORY Specimen Anatomical Collection Method Collection Time Receive d Time (Source) Location / / Volume Laterality Blood 12/01/2021 7:12 AM 7:30 EDT AM EDT Resulting Agency Comment Spec In Lab Hermilo Valdez MD HEMATOLOGY ORDERABLES Performing Organization Address City/State/Z[place] [address] (ABNORMAL) Comprehensive metabolic panel (non-fasting) (12/01/2021 7:12 AM EDT) P athologist Signature Glucose Lvl 152 65 - 199 [facility] mg/dL [facility] LABORATORY Comment: Diabetes: >=200 mg/dL plus symp toms BUN 24 (H) 10 - 20 mg/dL [facility] LABORATORY Creatinine 0.90 0.80 - 1.50 mg/dL [facility] LABORATORY Sodium 138 135 - 145 mmol/L [...] estions. Chloride 102 98 - 107 mmol/L [facility] LABOR[facility]ORY CO2 25 22 - 31 mmol/L [facility]OR[facility]ORY Anion Gap 11 5 - 15 mmol/L [facility] LABORATORY Calcium 8.8 8.5 - 10.5 mg/dL [facility] Total Protein 7.2 6.1 - 8.0 g/dL [facility] LABOR[facility]ORY Albumin 4.5 3.2 - 5.2 g/dL [facility] LABORATORY AST 24 0 - 39 unit/L [facility] LABOR[facility] ALT 38 0 - 55 unit/L [facility] LABOR[facility] Alk Phos 306 (H) 40 - 130 unit/L [facility] LABORATORY Total Bilirubin 0.4 0.2 - 1.3 mg/dL [facility] LABORATORY Estimated GFR 92 >=60 mL/min/1.73 m?? [facility] LABORATORY Comment: This patient's estimated GFR was [...] Valdez MD CHEMISTRY ORDERABLES Performing Organization Address [facility]/[address] (ABNORMAL) PSA (Ultrasensitive) (12/01/2021 7:12 AM EDT) Analysis Performed At [facility] Time Signature PSA Total 4.31 (H) 0.00 - [facility] (Ultrasensitiv 4.00 ng/mL [facility] LABORATORY Comment: PLEASE NOTE: The above [...] Valdez MD CHEMISTRY ORDERABLES Performing Organization Address [facility] [place] [address] documented in this encounter Visit Diagnoses Diagnosis Malignant neoplasm of prostate metastati c to bone Malignant neoplasm of prostate documented in this encounter Care Teams Tax Preparer Relationship Specialty Start Date End Date Maxwell Saldivar MD PCP - General Family Medicine 10/12/21 [address] [place] [phone] documented as of this encounter
--- OUTSIDE RECORDS SUMMARY | 2022-01-19 10:28 | XMS_ITS | Encounter Summary ---
:1950 Author Organization [place] [address] Care Team Providers Name Role Phone Maxwell Saldivar MD Primary Care Provider Reason for Visit Reason Comments Chemotherapy Degarelix/Xgeva Treatment/Therapy Plan Authorization (Routine) - Authorized Specialty Diagnoses / Procedures Referred By Contact Refer red To Contact Diagnoses Malignant neoplasm of prostate metastatic to bone Woody Mora MD [facility] Hem Onc 3k Procedures IN[facility]USION [facility] HEMATOLOGY/[place] [address] [place] [address] Referral ID Status Reason Start Date Expiration Date Visits V isits Requested Authorized [id number] Authorized 10/29/2021 10/29/2022 99 99 Encounter Details Date Type Department Care Team Description 11/03/2021 Hospital Encounter Hematology and Maligna nt neoplasm of Oncology at [facility] prostate metastatic to [facility] [place] [address] Social History Tobacco Use Types Packs/Day [...] place to sleep or slept in a care home (including now)? Sex Assigned at Date [...] hours as needed for Pain. abiraterone (Zytiga) 500 mg Take 2 tablets 30 tablet 11 10/1311/23/2021 Tablet by mouth daily. lisinopriL (Zestril) 30 mg Take 30 mg by 0 12/29/2021 Tablet mouth daily. morphine IR (MSIR) 15 mg Take 15 mg by 0 12/29/2021 Tablet mouth every 4 hours as needed for Pain. abiraterone (Zytiga) 500 mg Take 2 tablets 30 tablet 10/1311/04/2021 Tablet by mouth daily. documented as of this encounter Progress Notes Reece Rubio RN - 11/03/2021 5:51 PM EDT Patient Name: Maxwell Kennedy Patient Age: 71 y.o. Birthdate: 1950 Admit date: 11/03/2021 Attending Physician: No att. providers found Access visit. See MAR and/or flowsheet. Patient gave verbal consent for treatment to MD Tolerated treatment without incident. AVS and drug information sheets given to patient. documented in this encounter Plan of Treatment Upcoming Encounters Date Type Specialty Care Team Description 02/02/2022 Office Visit Hematology and Oncology Woody Bowles MD [facility] HEMATOLOGY/ONCOL [place], [place] [address] (Wo rk) documented as of this encounter Visit Diagnoses Diagnosis Malignant neoplasm of prostate metastati c to bone Malignant neoplasm of prostate documented in this encounter Administered Medications Inactive Administered Medications - up to 3 most recent administrations Medication Order MAR Action Action Date Dose Rate Site calcium carbonate (Tums) chewable Given 11/03/2021 5:20 PM EDT 5 00 mg tablet 500 mg 500 mg, Oral, ONCE, 1 dose, On Tue11/03/21 at 1645, Routine degarelix (Firmagon) (240 mg/6 Given 11/03/2021 5:12 PM EDT 240 mg Abdominal Tissue mL) injection 240 mg 240 mg, Subcutaneous, ONCE, 1 dose, On Tue11/03/21 at 1645, Routine, This agent is restricted to outpatient use. Is this drug being given as an outpatient? Yes denosumab (Xgeva) (120 mg/1.7 mL) Given 11/03/2021 5:20 PM EDT 1 20 mg Right Arm subcutaneous injection 120 mg 120 mg, Subcutaneous, ONCE, 1 dose, On Tue11/03/21 at 1645, Bring to room temperature 15-30 mins before administration. Call provider for corrected calcium less than 8.5 mg/dL or CrCl less than 30 mL/min., This agent is restricted to outpatient use. Is this drug being given as an outpatient? Yes documented in this encounter Care Teams Lawn Sprinkler Servicer Relationship Specialty Start Date End Date Maxwell Saldivar MD PCP - General Family Medicine 10/12/21 [address] [place] [address] documented as of this encounter
--- OUTSIDE RECORDS SUMMARY | 2022-01-19 10:28 | XMS_ITS | Encounter Summary ---
:1950 Author Organization [facility] [place] [address] Care Team Providers Name Role Phone Maxwell Saldivar MD Primary Care Provider Reason for Referral Diagnostic Test (Routine) - Closed Specialty Diagnoses / Procedures Referred By Contact Refer red To Contact Radiology Diagnoses Malignant neoplasm of prostate metastatic to bone Hermilo Valdez MD [facility] Rad Nuclear Med Procedures NM PET CT PSMA Prostate (Illuccix) [facility] [place] [address] [place] [address] Fax: Referral ID Status Reason Start Date Expiration Date Visits V isits Requested Authorized [id number] Closed Specialty 11/03/2021 05/06/2023 1 1 Service Requested Reason for Visit Reason Comments Establish Care Encounter Details Date Type Department Care Team Description 11/03/2021 Office Visit Hematology and Hermilo Valdez neoplasm of Oncology at [facility] MD [place] prostate metastatic to [place], [place] [phone] Social History Tobacco Use Types Packs/Day Years [...] Sign Reading Time Taken Comments Blood Pressure 141/79 11/03/2021 3:11 PM EDT Pulse 84 11/03/2021 3:11 PM EDT Temperature 36.7 ??C (98.1 ??F) 11/03/2021 3:11 PM EDT Respiratory Rate 17 11/03/2021 3:11 PM EDT Oxygen Saturation 99% 11/03/2021 3:11 PM EDT Inhaled Oxygen Concentration - - Weight 82.1 kg (181 lb) 11/03/2021 3:11 PM EDT Height 179.9 cm (5' 10.83) 11/03/2021 3:11 PM EDT Body Mass Index 25.37 11/03/2021 3:11 PM EDT documented in this encounter Progress Notes Hermilo Valdez MD - 11/03/2021 3:30 PM EDT OUTPATIENT HEMATOLOGY/ ONCOLOGY CONSULTATION HISTORY PRESENT ILLNESS This patient is a 71 y.o. male presenting for evaluation of metastatic prostate cancer. 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 He presented to an emergency room in [place], where he turner, with chest pain radiating to the back. The doctors there were apparently concerned for a aortic dissection, and imaging was performed. There were no vascular abnormalities, but they did find multiple bony lesions. Upon further work-up, PSA was about 100. He was referred for prostate biopsy, which confirmed the diagnosis locally, with high-grade features with a max Dunn Loring of 9. Today, he still struggling with some back pain and bony pain. He denies any fevers, chills, night sweats. No urologic symptoms. Relevant PMHx/ risk factors: ??? HTN Work up/ Pertinent Data ??? Prostate biopsy- many cores involved. Max Dunn Loring=9 ??? CT (from [place], for back/ chest pain)- multiple spinal and sacral bone lesions, concerning for mets ??? SLP=602 Treatment Course ?? 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 hydroCHLOROthiazide (Hydrodiuril) 12.5 mg Tablet Take 12.5 [...] 24 hrs: Temp Pulse Resp BP SpO2 11/03/21 1511 36.7 ??C (98.1 ??F) 84 17 141/79 99 % NAD, pleasant, Abd is soft, NT/ [place], there is no palpable organomegally Lymphadenopathy is not appreciated in neck or axilla Joints are not swollen or inflamed There are no gross neurologic deficits. Facial movement is symmetric. Speech is fluent and congruent. Gait and balance are normal Affect and mood are appropriate for the situation There are no appreciable rashes LABORATORY EVALUATION Recent Results (from the past 24 hour(s)) Testosterone, total Result Value Ref Range Testo Total 7.15 1.93 - 7.40 ng/mL Hemogram Result Value Ref Range WBC 11.9 (H) 4.0 - 9.5 x10(3)/mcL RBC 4.77 4.58 - 5.54 x10(6)/mcL Hemoglobin 14.2 13.7 - 16.5 g/dL Hematocrit 41.8 40.5 - 48.5 % MCV 87.6 82.9 - 93.1 fL MCH 29.8 27.5 - 32.1 pg MCHC 34.0 32.0 - 35.7 g/dL Platelets 228 145 - 357 x10(3)/mcL RDWSD 42.7 36.0 - 45.0 fL RDWCV 13.3 11.4 - 13.8 % MPV 8.8 7.6 - 12.9 fL nRBC % Auto 0.0 % nRBC Abs Auto 0.000 0.000 - 0.000 x10(3)/mcL Differential, Automated Result Value Ref Range Neutrophils % 61.3 % Neutr Abs (ANC) 7.29 (H) 1.70 - 6.10 x10(3)/mcL Lymphocytes % 28.2 % Lymphocytes Abs 3.4 (H) 0.9 - 3.2 x10(3)/mcL Monocytes % 7.2 % Monocyte Abs 0.9 0.3 - 0.9 x10(3)/mcL Eosinophils % 2.0 % Eosinophils Abs 0.2 0.0 - 0.4 x10(3)/mcL Basophils % 0.6 % Basophils Abs 0.1 0.0 - 0.1 x10(3)/mcL Immature Gran % 0.70 % Kady Gran Abs 0.08 (H) 0.00 - 0.04 x10(3)/mcL ASSESSMENT: Maxwell Kennedy is a 71 y.o. male presents with likely metastatic prostate cancer. He presented to ED with chest/ back pain, found to have multiple bony lesions. PSA was 125. Prostate biopsy revealed max Nneka 9 prostate adenocarcinoma. I am convinced enough, based on current imaging and the symptoms, that Mr Kennedy has metastatic disease, that we will begin Degarelix and Abiraterone today. Discussed side effects, and benefits. Mr Kennedy is very clear he values quality over quantity of life. Will also give Denosumab and get a PET scan. RTC in 4 weeks. Hermilo Valdez MD Pager: [phone] 11/03/2021 documented in this encounter Plan of Treatment Upcoming Encounters Date Type Specialty Care Team Description 02/02/2022 Office Visit Hematology and Oncology Woody Bowles MD [facility] HEM[facility]/ONCOL [place], [place] [address] (Wo rk) documented as of this encounter Results NM PET CT PSMA [...] who have questions please contact the health resident caregiver that requested your imaging first. ? Narrative [...] ho have questions please contact the health resident caregiver that requested your imaging first. Hermilo Valdez MD IMG PET ORDERABLES documented in this encounter Visit Diagnoses Diagnosis Malignant neoplasm of prostate metastati c to bone Malignant neoplasm of prostate Malignant neoplasm of prostate metastati c to bone Malignant neoplasm of prostate documented in this encounter Care Teams Rv Service Technician Relationship Specialty Start Date End Date Maxwell Saldivar MD PCP - General Family Medicine 10/12/21 [address] [place] [address] (work) documented as of this encounter
--- OUTSIDE RECORDS SUMMARY | 2022-01-19 10:28 | XMS_ITS | Encounter Summary ---
:1950 Author Organization [facility] [place] [address] Care Team Providers Name Role Phone Maxwell Saldivar MD Primary Care Provider Encounter Details Date Type Department Care Team Description 10/14/2021 Hospital Encounter Laboratory [facility] [place] [address] Social History Tobacco Use Types Packs/Day Years Used Date Never Assessed Financial Resource Strain Answer Date Recorded How [...] place to sleep or slept in a longterm (including now)? Sex Assigned at Date Recorded Not on file documented as of this encounter Plan of Treatment Upcoming Encounters Date Type Specialty Care Team Description 02/02/2022 Office Visit Hematology and Oncology Woody Bowles MD [facility] HEM[facility]/ONCOL [place], [place] [address] (Wo rk) documented as of this encounter Procedures Procedure Name Priority Date/Time Associated Diagnosis Comme nts SURGICAL PATHOLOGY Routine 10/14/2021 3:01 PM Res ults for this REPORT EDT procedure are i n the results section. documented in this encounter Results Surgical Pathology Report (10/14/2021 3:01 PM EDT) Component Value Ref Test Analysis Performed At [facility] Range Method Time Signature Surgical [id number] ? Location: [facility] Report The signing pathologist has (i) examined the relevant preparation(s) for the [facility] specimen(s) and (ii) rendered or confirmed the diagnosis(es) . HOSPITAL LABORATORY . ?Surgic al Pathology DIAGNOSIS CONSULTATION CASE Outside slides labeled [id number], collection date 10/02/2021 . A - Prostatic core needle biopsy, right base lateral: ??- Prostatic adenocarcinoma, Grade Group 5, [place] score 4+5=9 ?involving 100% of a single disrupted core. ??- Perineural invasion is identified. B - Prostatic core needle biopsy, right base medial: ??- Prostatic adenocarcinoma, Grade Group 5, [place] score 4+5=9 ?involving 2 of 2 core needle biopsies (100%, 100%). ??- Perineural invasion is identified. C - Prostatic core needle biopsy, right mid lateral: ??- Prostatic adenocarcinoma, Grade Group 3, Nneka score 4+3=7 ?involving 100% of a single core. ??- Intraductal carcinoma is present. ??- Estimated percentage of Nneka pattern 4: 85%. ??- Perineural invasion is identified. D - Prostatic core needle biopsy, right mid medial: ??- Prostatic adenocarcinoma, Grade Group 3, [place] score 4+3=7 ?involving 95% of a single core. ??- Intraductal carcinoma is present. ??- Estimated percentage of [place] pattern 4: 80%. ??- Perineural invasion is identified. E - Prostatic core needle biopsy, right apex lateral: ??- Prostatic adenocarcinoma, Grade Group 3, [place] score 4+3=7 ?involving 100% of a single core. ??- Cribriform pattern is present. ??- Estimated percentage of [place] pattern 4: 80%. ??- Perineural invasion is identified. F - Prostatic core needle biopsy, right apex medial: ??- Prostatic adenocarcinoma, Grade Group 3, [place] score 4+3=7 ?involving 100% of a single core. ??- Cribriform pattern is present. ??- Estimated percentage of [place] pattern 4: 70%. ??- Perineural invasion is identified. G - Prostatic core needle biopsy, left base lateral: ??- Prostatic adenocarcinoma, Grade Group 5, [place] score 4+5=9 ?involving 90% of a single core. ??- Perineural invasion is identified. H - Prostatic core needle biopsy, left base medial: ??- Prostatic adenocarcinoma, Grade Group 5, [place] score 4+5=9 ?involving 2 of 2 core needle biopsies (70%, 100%). ??- Intraductal carcinoma is present. ??- Perineural invasion is identified. I - Prostatic core needle biopsy, left mid lateral: . DIAGNOSIS ??- Prostatic adenocarcinoma, Grade Group 5, [place] score 5+4=9 ?involving 70% of a single core. J - Prostatic core needle biopsy, left mid medial: ??- Prostatic adenocarcinoma, Grade Group 5, [place] score 4+5=9 ?involving 70% of a single core. ??- Intraductal carcinoma is present. ??- Perineural invasion is identified. K - Prostatic core needle biopsy, left apex lateral: ??- Prostatic adenocarcinoma, Grade Group 5, [place] score 4+5=9 ?involving 2 of 2 core needle biopsies (50%, 75%). ??- Intraductal carcinoma is present. ??- Perineural invasion is identified. L - Prostatic core needle biopsy, left apex medial: ??- Prostatic adenocarcinoma, Grade Group 5, Nneka score 4+5=9 ?involving 95% of a single core, see discussion. ??- Intraductal carcinoma is present. ??- Perineural invasion is identified. Electronically signed by: ?Dhara Senior MD Verified: ??11/30/2021 9:16 ?? Pathologist Performed at: ??-[facility] Dept. of Pathology, [place], [place] DISCUSSION The overall morphology and s ubmitted extradepartmental immunohistochemical stains (synaptophysin+/chromograni n-/INSM1-) do not support a component of small cell neuroendocrine carcinoma. ADDITIONAL STUDIES Immunohistochemistry Studies: Formalin-fixed, paraffin-emb edded tissue sections are studied using the polymer technique with appropriate positive and negative controls. ?These IHC studies provide the pathologist wit h adjunctive diagnostic information. Antibody specificity has been verified by testin g antibodies on a series of in-house tissues with known immunohistochemical perform ance characteristics. The clinical interpretation of any antibody positive stain ing or its absence is evaluated within the context of clinical presentation, morp hology, histopathological criteria and other diagnostic tests. Outside block ? Antibody ?Result (Positive/Negative) B 1 ? [id number] ? Negat yumi ? p63 ?Negative ? p504s ? Positive D1,L1 ? CK34 BetaE12 ?Positive (IDC), Negative (invasive) ? p63 ?Positive (IDC), Negative (invasive) ? p50 4s ?Positive (IDC and invasive) SPECIMEN(S) SUBMITTED CONSULTATION CASE A - 27 slides labeled [id number], collection date 10/02/2021. [id number] Report to: [facility] Surgical Pathology Department [address], [place], [address], [place] ??[address] . CLINICAL INFORMATION Elevated PSA with likely bone mets SPECIMEN PROCESSING [facility] ([facility]) pathology slide(s) are reviewed. ??Refer to Diagnosis and Specimen Submitted for specific case infor jesús. For the full text of the [facility] report(s) please refer t o Non-DH Documentation Pathology in the electronic health record ( ?? eDH). Specimen (Source) Anatomical Collection Method Collection Time Re ceived Time Location / / Volume Laterality 10/14/2021 3:01 PM EDT Evin Kwon MD PATHOLOGY/CYTOLOGY ORDERABLE S Performing Organization Address City/State/[place] [address] documented in this encounter Visit Diagnoses Not on filedocumented in this encounter Care Teams Dye House Wheel Operator Relationship Specialty Start Date End Date Maxwell Saldivar MD PCP - General Family Medicine 10/12/21 [place] [phone] documented as of this encounter
--- OUTSIDE RECORDS SUMMARY | 2022-01-19 10:28 | XMS_ITS | Encounter Summary ---
:1950 Author Organization [facility] Address [address] [place] [address] Care Team Providers Name Role Phone Maxwell Saldivar MD Primary Care Provider Encounter Details Date Type Department Care Team Description 10/29/2021 Orders Only Hematology and Devitskiy, Woody, Maligna nt neoplasm of Oncology at [facility] [place] [place] prostate metastatic to [facility] bon e (Primary Dx) [place] [address] HEMATOLOGY/ONCOLOG [phone] Y ELDA [facility] Social History Tobacco Use Types Packs/Day Years [...] place to sleep or slept in a fdc (including now)? Sex Assigned at Date Recorded Not on file documented as of this encounter Plan of Treatment Upcoming Encounters Date Type Specialty Care Team Description 02/02/2022 Office Visit Hematology and Oncology Woody Bowles MD [facility]/ONCOL [place], [place] [address] (Wo rk) documented as of this encounter Results Testosterone, total (11/03/2021 2:30 PM EDT) athologist Signature Testo Total 7.15 1.93 - 7.40 DORIAN DAVID ng/mL [facility] Comment: Pediatric Reference Ranges: ? Males [...] Organization Address City/State/[place] [address] (ABNORMAL) Comprehensive metabolic panel (non-fasting) (11/03/2021 2:30 PM EDT) P athologist Signature Glucose Lvl 107 65 - 199 [facility] mg/dL [facility] Comment: Diabetes: >=200 mg/dL plus symp toms BUN 13 10 - 20 mg/dL [facility] Creatinine 0.84 0.80 - 1.50 mg/dL [facility] Sodium 138 135 - 145 mmol/L [facility] Potassium 4.1 3.5 - 5.0 mmol/L [facility] Comment: Please note: ??Patients with WBC >100,00 0 may have falsely elevated Potassium levels. ??For accurate Potassium quantif ication in these patients send serum separator tube (gold top) for subsequent determinations. ??Contact the Clinical Chemistry Laboratory if there are any qu estions. Chloride 100 98 - 107 mmol/L [facility] CO2 26 22 - 31 mmol/L [facility] Anion Gap 12 5 - 15 mmol/L [facility] Calcium 9.6 8.5 - 10.5 mg/dL [facility] Total Protein 7.8 6.1 - 8.0 g/dL [facility] Albumin 4.8 3.2 - 5.2 g/dL [facility] AST 22 0 - 39 unit/L [facility] ALT 18 0 - 55 unit/L [facility] Alk Phos 404 (H) 40 - 130 unit/L [facility] Total Bilirubin 0.7 0.2 - 1.3 mg/dL [facility] Estimated GFR 94 >=60 mL/min/1.73 m?? [facility] Comment: This patient's estimated GFR [...] Organization Address City/State/[place] [address] (ABNORMAL) PSA (Ultrasensitive) (11/03/2021 2:30 PM EDT) [facility] Method Time Signature PSA Total 100.00 (H) 0.00 - [facility] (Ultrasensitiv 4.00 ng/mL [facility] LABORATORY Comment: PLEASE NOTE: The above reference [...] / Volume Laterality Blood 11/03/2021 2:30 PM 2:53 EDT PM EDT Resulting Agency Comment Spec In Lab Woody Mora MD CHEMISTRY ORDERABLES Performing Organization Address City/State/[facility] [place] [address] documented in this encounter Visit Diagnoses Diagnosis Malignant neoplasm of prostate metastati c to bone - Primary Malignant neoplasm of prostate documented in this encounter Care Teams Belly Packer Relationship Specialty Start Date End Date Maxwell Saldivar MD PCP - General Family Medicine 10/12/21 [place] [address] documented as of this encounter
--- OUTSIDE RECORDS SUMMARY | 2022-01-19 10:28 | XMS_ITS | Encounter Summary ---
:1950 Author Organization [facility] [place] [address] Care Team Providers Name Role Phone Maxwell Saldivar MD Primary Care Provider Reason for Referral Consultation (Urgent) - Closed Specialty Diagnoses / Procedures Referred By Contact Refer red To Contact Hematology and Oncology Diagnoses Prostate cancer Bone lesion Maxwell Saldivar MD [facility] [address] [place], [place] [address] [address] [place] [address] Phone: Fax: Referral ID Status Reason Start Date Expiration Date Visits V isits Requested Authorized [id number] Closed Consult, Test 10/12/2021 10/12/2022 6 6 & Treat PCP Updated and/or Approved Encounter Details Date Type Department Care Team Description 10/12/2021 Transcribe Orders eDH Incoming Maxwell Saldivar M D Prostate cancer; Referrals [address] Bone lesion [phone] [place] [address] Social History Tobacco Use Types Packs/Day Years [...] place to sleep or slept in a long-term (including now)? Sex Assigned at Date Recorded Not on file documented as of this encounter Plan of Treatment Upcoming Encounters Date Type Specialty Care Team Description 02/02/2022 Office Visit Hematology and Oncology Woody Bowles MD [facility] HEMATOLOGY/ONCOL [place], [place] [address] (Wo rk) Scheduled Referrals Name Type Priority Associated Order Schedule Diagnoses Referral to Outpatient Referral STAT Prostate can cer Ordered: Hematology and Bone lesion 10/12/2021 Oncology documented as of this encounter Visit Diagnoses Diagnosis Prostate cancer Malignant neoplasm of prostate Bone lesion Disorder of bone and cartilage, unspecif ied documented in this encounter Care Teams [employer] Sales Representative Relationship Specialty Start Date End Date Maxwell Saldivar MD PCP - General Family Medicine 10/12/21 [address] [place] [phone] documented as of this encounter
--- OUTSIDE RECORDS SUMMARY | 2022-01-19 10:28 | XMS_ITS | Encounter Summary ---
:1950 Author Organization [facility] [place] [address] Care Team Providers Name Role Phone Maxwell Saldivar MD Primary Care Provider Encounter Details Date Type Department Care Team Description 10/31/2021 Orders Only Hematology and Hermilo Valdez neoplasm of Oncology at [facility] MD [place] [facility] [place] [address] [place] [id number] [phone] Social History Tobacco Use Types Packs/Day Years [...] and Oncology Woody Bowles MD [facility] HEMATOLOGY/ONCOL [place], [place] [address] (Wo rk) Scheduled Orders Name Type Priority Associated Diagnoses Order S chedule CBC (with Diff) Lab Routine Malignant neoplasm of An ry 4 Weeks for 12 prostate metastatic to Occur rences starting bone 10/31/2021 unti l 10/31/2022, 1 c ompleted Comprehensive metabolic Lab Routine Malignant neoplas m of Every 4 Weeks for 12 panel (non-fasting) prostate metastatic t o Occurrences starting bone 10/31/2021 unti l 10/31/2022, 1 c ompleted PSA (Ultrasensitive) Lab Routine Malignant neoplasm o f Every 4 Weeks for 12 prostate metastatic to Occur rences starting bone 10/31/2021 unti l 10/31/2022, 1 c ompleted documented as of this encounter Results (ABNORMAL) PSA (Ultrasensitive) (12/01/2021 7:12 AM EDT) Analysis Performed At [facility] Time Signature PSA Total 4.31 (H) 0.00 - [facility] (Ultrasensitiv 4.00 ng/mL [facility] LABORATORY Comment: PLEASE NOTE: The above [...] Organization Address City/State/[place] [address] (ABNORMAL) Comprehensive metabolic panel (non-fasting) (12/01/2021 7:12 AM EDT) P athologist Signature Glucose Lvl 152 65 - 199 [facility] mg/dL [facility] Comment: Diabetes: >=200 mg/dL plus symp toms BUN 24 (H) 10 - 20 mg/dL [facility] Creatinine 0.90 0.80 - 1.50 mg/dL [facility] Sodium 138 135 - 145 mmol/L [facility] Potassium 4.6 3.5 - 5.0 mmol/L [facility] Comment: Please note: ??Patients with WBC >100,00 0 may have falsely elevated Potassium levels. ??For accurate Potassium quantif ication in these patients send serum separator tube (gold top) for subsequent determinations. ??Contact the Clinical Chemistry Laboratory if there are any qu estions. Chloride 102 98 - 107 mmol/L [facility] CO2 25 22 - 31 mmol/L [facility] Anion Gap 11 5 - 15 mmol/L [facility] Calcium 8.8 8.5 - 10.5 mg/dL [facility] Total Protein 7.2 6.1 - 8.0 g/dL [facility] Albumin 4.5 3.2 - 5.2 g/dL [facility] AST 24 0 - 39 unit/L [facility] ALT 38 0 - 55 unit/L [facility] Alk Phos 306 (H) 40 - 130 unit/L [facility] Total Bilirubin 0.4 0.2 - 1.3 mg/dL [facility] Estimated GFR 92 >=60 mL/min/1.73 m?? [facility] Comment: This patient's estimated [...] Organization Address City/State/[place] [address] documented in this encounter Visit Diagnoses Diagnosis Malignant neoplasm of prostate metastati c to bone Malignant neoplasm of prostate documented in this encounter Care Teams Emergency Medicine Relationship Specialty Start Date End Date Maxwell Saldivar MD PCP - General Family Medicine 10/12/21 [address] [place] [address] documented as of this encounter
--- OUTSIDE RECORDS SUMMARY | 2022-01-19 10:28 | XMS_ITS | Encounter Summary ---
:1950 Author Organization [place] [address] Care Team Providers Name Role Phone Maxwell Saldivar MD Primary Care Provider Encounter Details Date Type Department Care Team Description 10/14/2021 External Results Medical Records Provider, Scanning [facility] [place] [address] Social History Tobacco Use Types Packs/Day [...] and Oncology Woody Bowles MD [facility] HEMAT[facility]/ONCOL [place], [place] [address] (Wo rk) documented as of this encounter Procedures Procedure Name Priority Date/Time Associated Diagnosis Comme nts SURGICAL PATHOLOGY Routine 10/14/2021 Results f or this SCAN procedure are i n the results section . documented in this encounter Results Scan Doc: Surgical Pathology (10/14/2021) Narrative This result has an attachment that is no t available. Evin Kwon MD MEDIA MGR SCAN EXT ORDR/RSLT documented in this encounter Visit Diagnoses Not on filedocumented in this encounter Care Teams Video Producer Relationship Specialty Start Date End Date Maxwell Saldivar MD PCP - General Family Medicine 10/12/21 [place] [address] documented as of this encounter
--- OUTSIDE RECORDS SUMMARY | 2022-01-19 10:28 | XMS_ITS | Encounter Summary ---
:1950 Author Organization [facility] [place] [address] Care Team Providers Name Role Phone Maxwell Saldivar MD Primary Care Provider Encounter Details Date Type Department Care Team Description 11/09/2021 Notes Only Care Management Zac Denton [facility] [place] [address] Social History Tobacco Use Types Packs/Day [...] documented as of this encounter Progress Notes Zac Denton - 11/09/2021 11:55 AM EDT I sent a letter and the application for assistance with Zytiga to the patient for them to complete, sign and return to the Medication Assistance Program. The [facility] office will follow up with the patient in 5 business days to see if the patient has received the application and if they have any questions. I sent the application for assistance with Zytiga to Hermilo Valdez MD for their signature and prescription. I will follow through with the remainder of the application once everything is returned to me. documented in this encounter Plan of Treatment Upcoming Encounters Date Type Specialty Care Team Description 02/02/2022 Office Visit Hematology and Oncology Woody Bowles MD [facility] HEMATOLOGY/ONCOL [place], [place] [address] (Wo rk) documented as of this encounter Visit Diagnoses Not on filedocumented in this encounter Care Teams Sweatband Drummer Relationship Specialty Start Date End Date Maxwell Saldivar MD PCP - General Family Medicine 10/12/21 [place] [address] documented as of this encounter
--- OUTSIDE RECORDS SUMMARY | 2022-01-19 10:28 | XMS_ITS | Encounter Summary ---
:1950 Author Organization [facility] [place] [address] Care Team Providers Name Role Phone Maxwell Saldivar MD Primary Care Provider Reason for Visit Reason Onset Date Comments Medication Refill 11/23/2021 Encounter Details Date Type Department Care Team Description 11/23/2021 Refill Hematology and Oncology at Blaire Rizvi RN [facility] [place] [address] Social History Tobacco Use Types Packs/Day [...] this encounter Miscellaneous Notes Telephone Encounter - Blaire Nunez RN - 11/23/2021 11:40 AM EDT Received notification that [employer] has closed their zytiga assistance program as of today. Pt will be referred to [employer] for their internal hardship program. Pt notified. Pt stated that he sent in his finances to [facility] along w/ his completed application for [employer]. Verbalized agreement w/ them being sent to [employer]. He is aware [employer] will contact him. Script pended to provider for review, signature and escribe to [employer]. documented in this encounter Plan of Treatment Upcoming Encounters Date Type Specialty Care Team Description 02/02/2022 Office Visit Hematology and Oncology Woody Bowles MD [facility] HEMATOLOGY/ONCOL [place], [place] [address] (Wo rk) documented as of this encounter Visit Diagnoses Not on filedocumented in this encounter Care Teams Employment Adjudicator Relationship Specialty Start Date End Date Maxwell Saldivar MD PCP - General Family Medicine 10/12/21 [place] [address] documented as of this encounter
--- OUTSIDE RECORDS SUMMARY | 2022-01-19 10:28 | XMS_ITS | Encounter Summary ---
:1950 Author Organization [facility] [place] [address] Care Team Providers Name Role Phone Maxwell Saldivar MD Primary Care Provider Encounter Details Date Type Department Care Team Description 11/03/2021 Abstract Hematology and Oncol ogashely at [facility] [place] [address] Social History Tobacco Use Types Packs/Day [...] and Oncology Woody Bowles MD [facility] HEMATOLOGY/ONCOL [place], [place] [address] (Wo rk) documented as of this encounter Visit Diagnoses Not on filedocumented in this encounter Care Teams Foreign Food Cook Specialty Relationship Specialty Start Date End Date Maxwell Saldivar MD PCP - General Family Medicine 10/12/21 [place] [address] documented as of this encounter
--- OUTSIDE RECORDS SUMMARY | 2022-01-19 10:29 | XMS_ITS | Clinical Summary ---
:1950 Author Organization [facility] Address [address] [place] [address] Care Team Providers Name Role Phone Unknown, Provider Primary Care Provider Social History Tobacco Use Types Packs/Day Years Used Date Smoking Tobacco: Never Assessed Sex Assigned at Date Recorded Not on file Plan of Treatment Health Maintenance Due Date Last Done Comments Hepatitis C Screen 1950 COVID-19 Vaccine (#1) 02/09/1951 Fall Risk Screening 08/08/2016 Insurance Payer Benefit Plan / Subscriber ID Effective Dates Phone Addre ss Type Group MEDICARE MEDICARE A/B [id number] 2016-Present [id number] Medicare GL [facility] [phone] BCBS [place] [id number] 2021-Present [id number] BC [address] [place] [address] MarciaMaxwell Vines Personal/Family Self 1950 [address] (Home) [place] [address] Maxwell Kennedy Personal/Family Self 1950 [address]) [place] [address] Maxwell Kennedy Personal/Family Self 1950 [address] (Home) [place] [address] Care Teams Java Lead Relationship Specialty Start Date End Date Unknown, Provider, PCP - General 09/11/21
--- OUTSIDE RECORDS SUMMARY | 2022-01-19 10:29 | XMS_ITS | Encounter Summary ---
:1950 Author Organization [facility] Address [address] [place] [address] Care Team Providers Name Role Phone Unknown, Provider Primary Care Provider Encounter Details Date Type Department Care Team Description 10/03/2021 Lab Requisition [facility] Adrián Sosa prostate Pathology & MD Devin specific antigen Laboratory Medicine [address] [facility] [place], [place] [address] [facility] [address] [place] [address] Social History Tobacco Use Types Packs/Day Years Used Date Smoking Tobacco: Never Assessed Sex Assigned at Date Recorded Not on file documented as of this encounter Plan of Treatment Not on filedocumented as of this encounter Procedures Procedure Name Priority Date/Time Associated Diagnosis Comme nts SURGICAL PATHOLOGY Today 10/02/2021 10:40 Elevated prostate Results for this EDT specific antigen procedure a re in (PSA) the results section. documented in this encounter Results SURGICAL PATHOLOGY (10/02/2021 10:40 EDT) Component Value Ref Test Analysis Performed Pathologis t Range Method Time At Signature Note to The following 10/07/[address] [facility] MEDICAL Patient pathology results 8:16 EDT CENTER have been interpreted LABORATO RY by your pathologist SERVICES and may be available to you before your health provider has had the opportunity to review them. Please allow time for your provider to receive these results and explore management options, if applicable. Final A. PROSTATE, RIGHT BASE LATERAL, BIOPSY (1): 10/07/[address] [facility] MEDICAL Diagnosis - Prostatic adenocarcinoma, acinar type, involving 1 of 1 core; 100% involvement. 8:16 EDT CENTER - Core 1 (11.7 mm): 4 + 3 = 7 (Grade Group 3) (85% pattern 4, 15% pattern 3), 11.7 mm LABORATORY Perineural invasion SERVICES Intraductal carcinoma (IDC-P) B. PROSTATE, RIGHT BASE MEDIAL, BIOPSY (2): - Prostatic adenocarcinoma, acinar type, involving 2 of 2 cores; overall 95% involvement. - Core 1 (6.7 mm): 4 + 4 = 8 (Grade Group 4), 6.0 mm (90% o f core) - Core 2 (9.2 mm): 4 + 3 = 7 (Grade Group 3) (95X% pattern 4, 5% pattern 3), 9.2 mm (100% of core) C. PROSTATE, RIGHT MID LATERAL, BIOPSY (1): - Prostatic adenocarcinoma, acinar type, involving 1 of 1 core; 100% involvement. - Core 1 (10.3 mm): 4 + 3 = 7 (Grade Group 3) (85X% pattern 4, 15% pattern 3), 10.3 mm Intraductal carcinoma (IDC-P) D. PROSTATE, RIGHT MID MEDIALL, BIOPSY (1): - Prostatic adenocarcinoma, acinar type, involving 1 of 1 core; 95% involvement. - Core 1 (16.1 mm): 4 + 3 = 7 (Grade Group 3) (80% pattern 4, 20% pattern 3), 15.3 mm Intraductal carcinoma (IDC-P) E. PROSTATE, RIGHT APEX LATERAL, BIOPSY (1): - Prostatic adenocarcinoma, acinar type, involving 1 of 1 core; 95% involvement. - Core 1 (12.7 mm): 4 + 3 = 7 (Grade Group 3) (60% pattern 4, 40% pattern 3), 12.1 mm Cribriform pattern present Perineural invasion F. PROSTATE, RIGHT APEX MEDIAL, BIOPSY (1): - Prostatic adenocarcinoma, acinar type, involving 1 of 1 core; 99% involvement. - Core 1 (11.6 mm): 4 + 3 = 7 (Grade Group 3) (65% pattern 4, 35% pattern 3), 11.5 mm Perineural invasion G. PROSTATE, LEFT BASE LATERAL, BIOPSY (1): - Prostatic adenocarcinoma, acinar type, involving 1 of 1 core; 75% involvement. - Core 1 (17.3 mm): 4 + 5 = 9 (Grade Group 5) (5% pattern 5, 95% pattern 4), 13.2 mm Perineural invasion Intraductal carcinoma (IDC-P) H. PROSTATE, LEFT BASE MEDIAL, BIOPSY (1, fragmented): - Prostatic adenocarcinoma, acinar type, involving 1 of 1 fragmented core; overall 70% involvement. - Fragment 1 (5.8 mm): 4 + 5 = 9 (Grade Group 5) (30% pattern 5, 70% pattern 4), 5.1 mm Perineural invasion Intraductal carcinoma (IDC-P) - Fragment 2 (11.1 mm): 4 + 5 = 9 (Grade Group 5) (45% pattern 5, 55% pattern 4), 6.3 mm Intraductal carcinoma (IDC-P) I. PROSTATE, LEFT MID LATERAL, BIOPSY (1): - Prostatic adenocarcinoma, acinar type, involving 1 of 1 core; 70% involvement. - Core 1 (16.1 mm): 5 + 4 = 9 (Grade Group 5) (60% pattern 5, 40% pattern 4), 11.0 mm Intraductal carcinoma (IDC-P) J. PROSTATE, LEFT MID MEDIAL, BIOPSY (1): - Prostatic adenocarcinoma, acinar type, involving 1 of 1 core; 65% involvement. - Core 1 (15.8 mm): 4 + 5 = 9 (Grade Group 5) (15% pattern 5, 85% pattern 4), 10.3 mm Intraductal carcinoma (IDC-P) K. PROSTATE, LEFT APEX LATERAL, BIOPSY (2): - Prostatic adenocarcinoma, acinar type, involving 2 of 2 cores; overall 70% involvement. - Core 1 (9.3 mm): 4 + 5 = 9 (Grade Group 5) (35% pattern 5, 65% pattern 4), 7.0 mm (75% of core) Intraductal carcinoma (IDC-P) - Core 2 (5.4 mm): 4 + 5 = 9 (Grade Group 5) (20% pattern 5, 80% pattern 4), 3.0 mm (55% of core) Intraductal carcinoma (IDC-P) L. PROSTATE, LEFT APEX MEDIAL, BIOPSY (1): - Prostatic adenocarcinoma, acinar type, involving 1 of 1 core; 95% involvement. - Core 1 (13.9 mm): 4 + 5 = 9 (Grade Group 5) (30% pattern 5, 70% pattern 4), 13.0 mm Perineural invasion Intraductal carcinoma (IDC-P) Overall Grade Group: Group 5 New Prostate Cancer Grading System*: This system was developed based on a study of greater than 20,000 prostate cancer cases treated with radical prostatectomy and greater than 5000 cases treated by rad iation therapy. The system w as developed to provide a smaller number of grades with the most significant prognostic differences, with Group 1 having the best prognosis and Group 5 the worst prognosis. T he highest grade group is reported for each biopsy series on a patient. Grade Group 1 (Nneka score ?6) Grade Group 2 (Nneka score 3+4=7) Grade Group 3 (Nneka score 4+3=7) Grade Group 4 (Arma score 8) Grade Group 5 (Nneka scores 9-10) * Lucille DENNISON et al: A [facility] Prostate Cancer Grading System: A Validated Alternative to the Arma Score. Eur Uro 2015 69(3):428-435 Diagnosis Immunohistochemical study wa s performed on (J1) to evaluate for neuroendocrine features, and the immunoreactivity profile does not support neuroendocrine features. 10/07/[address] [facility] MEDICAL Comment 8:16 T CENTER IMMUNOHISTOCHEMISTRY: LABORATO RY ANTIBODY(CLONE)(BLOCK):RESULT SERVICES Chromogranin (LK2H10, [place]) (J1): Negative Synaptophysin (27G12, [place]) (J1): Patchy positive INSM-1 (MRQ-70, [facility]) (J1): Negative NOTE: One or more of the re agents used in immunoperoxidase testing in this case may not have been cleared or approved by the U.S. Food and Drug Administration (FDA). The FDA has determined that such cl earance or approval is not n ecessary. These tests are used for clinical purposes. They should not be regarded as investigational or for research. These reagents' performance characteristics have been de termined by [facility] and/or by the referring laboratory. The positive and negative controls worked appropriately. If immunoperoxidase staining has been performed on alcoh ol fixed cytology specimens, which has not been fully validated, the assays should be interpreted with caution and correlated with clinical data. This laboratory is certified under the Clinical Laborato ry Improvement Amendments of 1988 (CLIA-88) as qualified to perform high complexity clinical laboratory testing. Attestation By the signature 10/07/[address] [facility] MEDICA L Electronically below, the attending 8:16 EDT CENTER signed by physician Eloy certifies LABORATORY MD Dionne that they have 1) SERVICES on 10/07/2021 at personally conducted 0815 a gross and/or microscopic examination of the described specimen(s), and/or personally interpreted the results of laboratory testing of the described specimen(s), and 2) personally rendered or confirmed the above diagnosis. Clinical Elevated PSA with 10/07/[address] [facility] MEDICAL History likely bone mets 8:16 [facility] SERVICES Gross A. 10/07/[address] [facility] MEDICAL Description Received in formalin agueda d with proper patient identification (initials C, J) and RT base lateral is a single needle core (1.2 cm in length by 0.2 cm in diameter). The specimen is submitted entirely in A1. 8:16 [facility] B. SERVICES Received in formalin agueda d with proper patient identification (initials C, J) and RT base med are 2 needle cores, each measuring 0.5 cm in length by 0.1 cm in diameter). The specimens are submitted entirely in B1. C. Received in formalin agueda d with proper patient identification (initials C, J) and RT mid Lat is a single needle core (1.0 cm in length by 0.1 cm in diameter). The specimens are submitted entirely in C1. D. Received in formalin agueda d with proper patient identification (initials C, J) and right mid medial is a single needle core (1.6 cm in length by 0.1 cm in diameter). The specimen is submitted entirely in D1. E. Received in formalin agueda d with proper patient identification (initials , J) and right apex Lat is a single needle core (1.5 cm in length by 0.1 cm in diameter). Specimen is submitted entirely in E1. F. Received in formalin agueda d with proper patient identification (initials C, J) and RT apex med is a single needle core (1.2 cm in length by 0.1 cm in diameter). The specimen is submitted entirely in F1. G. Received in formalin agueda d with proper patient identification (initials C, J) and left base Lat is a single needle core (1.2 cm in length by 0.1 cm in diameter). The specimen is submitted entirely in G1. H. Received in formalin agueda d with proper patient identification (initials C, J) and left base med is a single needle core (1.5 cm in length by 0.1 cm in diameter). The specimen is submitted entirely in H1. I. Received in formalin agueda d with proper patient identification (initials C, J) and left mid Lat is a single needle core (1.5 cm in length by 0.1 cm in diameter). The specimen is submitted entirely in I1. J. Received in formalin agueda d with proper patient identification (initials C, J) and left mid med is a single needle core (1.5 cm in length by 0.1 cm in diameter). The specimen is submitted entirely in J1. K. Received in formalin agueda d with proper patient identification (initials C, J) and left apex Lat are 2 needle cores, measuring 0.6 cm and 1.0 cm in length by 0.1 cm in diameter. The specimens are submitted entirely in K1. L. Received in formalin agueda d with proper patient identification (initials C, J) and left apex Med is a single needle core (1.1 cm in length by 0.1 cm in diameter). The specimens are submitted entirely in L1. SANDOVAL SHANE(ASCP) 10/04/2021 15:16 Performing [facility] LAB 10/07/[address] [facility] MEDIC AL Lab 8:16 EDT CENTER LABORATORY SERVICES Scanned 10/07/[address] [facility] MEDICAL Images 8:16 EDT CENTER LABORATORY SERVICES Specimen Anatomical Collection Method Collection Time Receive d Time (Source) Location / / Volume Laterality Tissue ENTIRE APEX OF 10/02/2021 10:40 8:51 PROSTATE / Unknown EDT EDT Tissue specimen ENTIRE BASE OF 10/02/2021 10:40 2021 8:51 (specimen) PROSTATE / Unknown EDT EDT Tissue specimen RIGHT LATERAL 10/02/2021 10:40 022 8:51 (specimen) MIDDLE PERIPHERAL EDT EDT ZONE OF PROSTATE / Unknown Tissue specimen ENTIRE MIDDLE 10/02/2021 10:40 022 8:51 (specimen) REGION OF PROSTATE EDT EDT / Unknown Tissue specimen ENTIRE APEX OF 10/02/2021 10:40 2021 8:51 (specimen) PROSTATE / Unknown EDT EDT Tissue specimen ENTIRE APEX OF 10/02/2021 10:40 2021 8:51 (specimen) PROSTATE / Unknown EDT EDT Tissue specimen ENTIRE BASE OF 10/02/2021 10:40 2021 8:51 (specimen) PROSTATE / Unknown EDT EDT Tissue specimen ENTIRE BASE OF 10/02/2021 10:40 2021 8:51 (specimen) PROSTATE / Unknown EDT EDT Tissue specimen ENTIRE LATERAL 10/02/2021 10:40 2021 8:51 (specimen) MIDDLE REGIONAL EDT EDT PART OF PERIPHERAL ZONE OF LEFT HALF PROSTATE / Unknown Tissue specimen ENTIRE MIDDLE 10/02/2021 10:40 022 8:51 (specimen) REGION OF PROSTATE EDT EDT / Unknown Tissue specimen ENTIRE APEX OF 10/02/2021 10:40 2021 8:51 (specimen) PROSTATE / Unknown EDT EDT Tissue specimen ENTIRE APEX OF 10/02/2021 10:40 2021 8:51 (specimen) PROSTATE / Unknown EDT EDT Adrián Sosa MD PATHOLOGY ORDERABLES Performing Organization Address City/State/ZIP Code Phon e Number [facility] [address] [place] [id number] SERVICES documented in this encounter Visit Diagnoses Diagnosis Elevated prostate specific antigen (PSA) documented in this encounter Care Teams Wood Tool Maker Relationship Specialty Start Date End Date Unknown, Provider, PCP - General 09/11/21 documented as of this encounter
--- OUTSIDE RECORDS SUMMARY | 2022-01-19 10:29 | XMS_ITS | Encounter Summary ---
:1950 Author Organization [facility] Address [address] [place] [address] Care Team Providers Name Role Phone Unknown, Provider Primary Care Provider Encounter Details Date Type Department Care Team Description 09/25/2021 Lab Requisition [facility] Outr Resulting Lab, Pathology & Laboratory Provider [facility] [address] [place] [address] Social History Tobacco Use Types Packs/Day Years Used Date Smoking Tobacco: Never Assessed Sex Assigned at Date Recorded Not on file documented as of this encounter Plan of Treatment Not on filedocumented as of this encounter Procedures Procedure Name Priority Date/Time Associated Comments Diagnosis SPEP, INCLUDES Today 09/25/2021 11:19 Results f or this QUANTITATION OF EDT procedure ar e in MONOCLONAL SPIKE the results PERFORMABLE section. SPEP, INCLUDES Routine 09/25/2021 11:19 Results f or this QUANTITATION OF EDT procedure ar e in MONOCLONAL SPIKE the results section. PROTEIN, TOTAL Today 09/25/2021 11:19 EDT PSA TOTAL, DIAGNOSTIC Routine 09/25/2021 11:19 Re sults for this EDT procedure are i n the results section. documented in this encounter Results SPEP, INCLUDES QUANTITATION OF MONOCLONAL SPIKE PERFORMABLE (09/25/2021 11:19 EDT) Component Value Ref Test Analysis Performed At [facility] Range Method Time Signature Albumin % 58.7 55.8 - 09/28/2021 [facility] 66.1 % 13:41 EDT [facility] Albumin g/dL 4.1 3.6 - 09/28/2021 [facility] 5.2 g/dL 13:41 EDT [facility]ENTER [facility] Alpha-1 % 4.1 2.9 - 09/28/2021 [facility] 4.9 % 13:41 EDT [facility]ENTER LAB[facility] Alpha-1 g/dL 0.30 0.15 - 09/28/2021 [facility] 0.40 13:41 EDT CENTER g/dL LABORATORY SERVICES Alpha-2 % 10.6 7.1 - 09/28/2021 [facility] 11.8 % 13:41 EDT [facility]ENTER LABORATORY SERVICES Alpha-2 g/dL 0.70 0.50 - 09/28/2021 [facility] 1.00 13:41 EDT CENTER g/dL LABORATORY SERVICES Beta % 11.8 8.4 - 09/28/2021 [facility] 13.1 % 13:41 EDT [facility]ENTER LABOR[facility] SERVICES Beta g/dL 0.80 0.60 - 09/28/2021 [facility] 1.20 13:41 EDT CENTER g/dL LABORATORY SERVICES Gamma % 14.8 11.1 - 09/28/2021 [facility] 18.8 % 13:41 T CENTER LABORATORY SERVICES Gamma g/dL 1.00 0.60 - 09/28/2021 [facility] 1.60 13:41 EDT CENTER g/dL LABORATORY SERVICES SPEP Comment No apparent 09/28/2021 [facility] monoclonal protein 13:41 T CENTER seen on serum LABORATORY electrophoresis SERVICES Comment: See scanned/supplementary repor t. Total Protein 7.0 6.3 - 8.2 g/dL 09/28/2021 13:41 EDT [facility] Specimen Anatomical Collection Method Collection Time Receive d Time (Source) Location / / Volume Laterality Blood VENOUS BLOOD / 09/25/2021 11:19 2 Unknown EDT 21:53 EDT Narrative This result has an attachment that is no t available. Provider Outr Resulting Lab CHEMISTRY & BLOOD GAS DANIA CONNOR Performing Organization Address City/State/ZIP Code Phon e Number [facility] [address] [place] [address] SERVICES PROTEIN, TOTAL (09/25/2021 11:19 EDT) Specimen Anatomical Collection Method Collection Time Receive d Time (Source) Location / / Volume Laterality Blood VENOUS BLOOD / 09/25/2021 11:19 2 Unknown EDT 21:53 EDT Provider Outr Resulting Lab CHEMISTRY & BLOOD GAS DANIA CONNOR Performing Organization Address City/[facility]/ZIP Code Phon e Number [facility] [address] [place] [address] SERVICES (ABNORMAL) PSA TOTAL, DIAGNOSTIC (09/25/2021 11:19 EDT) P athologist Signature PSA 119.0 (H) <=6.5 09/28/2021 [facility] ng/mL 13:05 [facility] Specimen Anatomical Collection Method Collection Time Receive d Time (Source) Location / / Volume Laterality Blood VENOUS BLOOD / 09/25/2021 11:19 2 Unknown EDT 21:53 EDT Narrative [facility] - 09/28/2021 13:05 EDT NOTE: Serum PSA concentration should not be in terpreted as absolute evidence for the presence or absence of malignant disease. Assayed on [employer] XPT usi ng chemiluminescent technology.??Values obtained by using different assay methods cannot be used interchangeably. Provider Outr Resulting Lab CHEMISTRY & BLOOD GAS TAME NIKOLAS Performing Organization Address City/State/ZIP Code Phon e Number [facility] [address] [place] [address] SERVICES documented in this encounter Visit Diagnoses Not on filedocumented in this encounter Care Teams Central Supply Manager Relationship Specialty Start Date End Date Unknown, Provider, PCP - General 09/11/21 documented as of this encounter
[2022-01-19 11:24] LABS: ALT 54 U/L (16-63); AST 29 U/L (15-37); Albumin 3.8 g/dL (3.4-5.0); Alkaline Phosphatase 115 U/L (46-116); Anion Gap 10.2 mmol/L (3-11); BUN 20 mg/dL (7-18); Bilirubin, Total 0.5 mg/dL (0.2-1.0); CO2 26.8 mmol/L (21.0-32.0); CREATININE 0.9 mg/dL (0.70-1.30); Calcium 8.4 mg/dL (8.5-10.1); Chloride 105 mmol/L (98-107); Estimated GFR 91.88 (mL/min/1.73m2); Glucose 130 mg/dL (74-106); Potassium 3.3 mmol/L (3.5-5.1); Sodium 142 mmol/L (136-145); Total Protein 7.3 g/dL (6.4-8.2)
== END 2022-01-19 10:24 | disposition home or self-care (01) ==
PROVIDERS: PCP Family Medicine; Visit Provider Internal Medicine
DX: C61 Malignant neoplasm of prostate (principal); C79.51 Secondary malignant neoplasm of bone
CPT/HCPCS: 36415; 80053

== ENCOUNTER 2022-01-26 03:34 | Outpatient (CLI) | payer MEDICARE, BC, SELFPAY ==
[2022-01-26 09:19] LABS: Abs Immature Grans 0.03 10^3/uL (0.0-0.06); Absolute Basophil Count 0.05 10^3/uL (0.0-0.2); Absolute Eosinophil Count 0.49 10^3/uL (0.0-0.7); Absolute Lymphocyte Count 1.42 10^3/uL (1.2-3.4); Absolute Monocyte Count 0.48 10^3/uL (0.1-0.8); Absolute Neutrophil Count 2.75 10^3/uL (1.2-6.7); Eosinophils % 9.4; Immature Grans % 0.6; Lymphocytes % 27.2; MCH 30.4 pg (27.0-33.0); MCHC 33.3 % (32.0-36.0); MCV 91 fL (80-95); MPV 8.8 fL (8.0-11.0); Monocytes % 9.2; Neutrophils % 52.6; Platelet Count 231 10^3/uL (130-400); RBC 4.27 10^6/uL (4.36-5.78); RDW 14.3 % (11.8-14.1); WBC 5.22 10^3/uL (4.4-10.8)
[2022-01-26 09:39] LABS: ALT 48 U/L (16-63); AST 26 U/L (15-37); Albumin 3.7 g/dL (3.4-5.0); Alkaline Phosphatase 109 U/L (46-116); Anion Gap 8.9 mmol/L (3-11); BUN 19 mg/dL (7-18); Bilirubin, Total 0.5 mg/dL (0.2-1.0); CO2 27.1 mmol/L (21.0-32.0); Calcium 8.4 mg/dL (8.5-10.1); Chloride 105 mmol/L (98-107); Estimated GFR 80.97 (mL/min/1.73m2); Glucose 137 mg/dL (74-106); Potassium 3.5 mmol/L (3.5-5.1); Sodium 141 mmol/L (136-145); Total Protein 7.1 g/dL (6.4-8.2)
[2022-01-28 11:34] LABS: PSA, Ultrasensitive 0.45 ng/mL (<= 6.5)
[2022-02-03 00:56] LABS: Testosterone, Total <7.0 ng/dL (240-950)
== END 2022-01-26 03:35 | disposition home or self-care (01) ==
LOC: LBO 03:35
PROVIDERS: PCP Family Medicine; Visit Provider Internal Medicine
DX: C61 Malignant neoplasm of prostate (principal); C79.51 Secondary malignant neoplasm of bone
CPT/HCPCS: 36415; 80053; 84153; 84403; 85025

== ENCOUNTER 2022-02-02 15:12 | Outpatient (CLI) | payer MEDICARE, BC, SELFPAY ==
[2022-02-02 14:06] LABS: Abs Immature Grans 0.02 10^3/uL (0.0-0.06); Absolute Basophil Count 0.04 10^3/uL (0.0-0.2); Absolute Eosinophil Count 0.31 10^3/uL (0.0-0.7); Absolute Lymphocyte Count 1.51 10^3/uL (1.2-3.4); Absolute Monocyte Count 0.66 10^3/uL (0.1-0.8); Absolute Neutrophil Count 3.89 10^3/uL (1.2-6.7); Basophils % 0.6; Eosinophils % 4.8; HCT 38.1 % (40.0-50.0); HGB 12.8 g/dL (13.5-17.5); Immature Grans % 0.3; Lymphocytes % 23.5; MCH 30.3 pg (27.0-33.0); MCHC 33.6 % (32.0-36.0); MCV 90 fL (80-95); MPV 8.7 fL (8.0-11.0); Monocytes % 10.3; Neutrophils % 60.5; Platelet Count 241 10^3/uL (130-400); RBC 4.23 10^6/uL (4.36-5.78); RDW 13.9 % (11.8-14.1); RDW-SD 45.8 fL; WBC 6.43 10^3/uL (4.4-10.8)
[2022-02-02 14:42] LABS: ALT 41 U/L (16-63); AST 23 U/L (15-37); Albumin 3.8 g/dL (3.4-5.0); Alkaline Phosphatase 102 U/L (46-116); Anion Gap 8.4 mmol/L (3-11); BUN 19 mg/dL (7-18); Bilirubin, Total 0.5 mg/dL (0.2-1.0); CO2 28.6 mmol/L (21.0-32.0); CREATININE 1.1 mg/dL (0.70-1.30); Calcium 8.4 mg/dL (8.5-10.1); Chloride 105 mmol/L (98-107); Estimated GFR 72.22 (mL/min/1.73m2); Glucose 137 mg/dL (74-106); Potassium 3.5 mmol/L (3.5-5.1); Sodium 142 mmol/L (136-145); Total Protein 7.4 g/dL (6.4-8.2)
[2022-02-05 10:12] LABS: PSA, Ultrasensitive 0.43 ng/mL (<= 6.5)
[2022-02-06 16:56] LABS: Testosterone, Total <7.0 ng/dL (240-950)
== END 2022-02-02 15:13 | disposition home or self-care (01) ==
LOC: LBO 02-09 15:13
PROVIDERS: PCP Family Medicine; Visit Provider Internal Medicine
DX: C61 Malignant neoplasm of prostate (principal); C79.51 Secondary malignant neoplasm of bone
CPT/HCPCS: 36415; 80053; 84153; 84403; 85025

== ENCOUNTER 2022-02-16 03:35 | Outpatient (CLI) | payer MEDICARE, BC, SELFPAY ==
[2022-02-16 10:29] LABS: Abs Immature Grans 0.02 10^3/uL (0.0-0.06); Absolute Basophil Count 0.05 10^3/uL (0.0-0.2); Absolute Eosinophil Count 0.27 10^3/uL (0.0-0.7); Absolute Lymphocyte Count 1.65 10^3/uL (1.2-3.4); Absolute Monocyte Count 0.64 10^3/uL (0.1-0.8); Basophils % 0.8; Eosinophils % 4.3; HCT 41.4 % (40.0-50.0); HGB 14.1 g/dL (13.5-17.5); Immature Grans % 0.3; Lymphocytes % 26.1; MCHC 34.1 % (32.0-36.0); MCV 91 fL (80-95); MPV 9.7 fL (8.0-11.0); Monocytes % 10.1; Neutrophils % 58.4; Platelet Count 221 10^3/uL (130-400); RBC 4.55 10^6/uL (4.36-5.78); RDW 13.5 % (11.8-14.1); RDW-SD 45.2 fL; WBC 6.33 10^3/uL (4.4-10.8)
[2022-02-16 10:48] LABS: ALT 33 U/L (16-63); AST 26 U/L (15-37); Albumin 4.1 g/dL (3.4-5.0); Alkaline Phosphatase 103 U/L (46-116); Anion Gap 6.1 mmol/L (3-11); BUN 18 mg/dL (7-18); Bilirubin, Total 0.6 mg/dL (0.2-1.0); CO2 28.9 mmol/L (21.0-32.0); CREATININE 0.9 mg/dL (0.70-1.30); Calcium 8.8 mg/dL (8.5-10.1); Chloride 103 mmol/L (98-107); Estimated GFR 91.88 (mL/min/1.73m2); Glucose 120 mg/dL (74-106); Potassium 4.1 mmol/L (3.5-5.1); Sodium 138 mmol/L (136-145)
[2022-02-17 15:10] LABS: PSA, Ultrasensitive 0.28 ng/mL (<= 6.5)
[2022-02-19 15:38] LABS: Testosterone, Total <7.0 ng/dL (240-950)
== END 2022-02-16 03:36 | disposition home or self-care (01) ==
PROVIDERS: PCP Family Medicine; Visit Provider Internal Medicine
DX: C61 Malignant neoplasm of prostate (principal); C79.51 Secondary malignant neoplasm of bone
CPT/HCPCS: 36415; 80053; 84153; 84402; 84403; 84410; 85025

== ENCOUNTER 2022-03-16 03:41 | Outpatient (CLI) | payer MEDICARE, BC, SELFPAY ==
[2022-03-16 09:43] LABS: Abs Immature Grans 0.02 10^3/uL (0.0-0.06); Absolute Basophil Count 0.04 10^3/uL (0.0-0.2); Absolute Eosinophil Count 0.26 10^3/uL (0.0-0.7); Absolute Lymphocyte Count 1.44 10^3/uL (1.2-3.4); Absolute Monocyte Count 0.51 10^3/uL (0.1-0.8); Absolute Neutrophil Count 3.34 10^3/uL (1.2-6.7); Basophils % 0.7; Eosinophils % 4.6; HCT 39.7 % (40.0-50.0); HGB 13.2 g/dL (13.5-17.5); Immature Grans % 0.4; Lymphocytes % 25.7; MCH 31.1 pg (27.0-33.0); MCHC 33.2 % (32.0-36.0); MCV 93 fL (80-95); MPV 8.7 fL (8.0-11.0); Monocytes % 9.1; Neutrophils % 59.5; Platelet Count 235 10^3/uL (130-400); RBC 4.25 10^6/uL (4.36-5.78); RDW-SD 44.3 fL; WBC 5.61 10^3/uL (4.4-10.8)
[2022-03-16 10:11] LABS: ALT 43 U/L (16-63); AST 25 U/L (15-37); Albumin 3.9 g/dL (3.4-5.0); Alkaline Phosphatase 79 U/L (46-116); Anion Gap 6.4 mmol/L (3-11); BUN 12 mg/dL (7-18); Bilirubin, Total 0.6 mg/dL (0.2-1.0); CO2 29.6 mmol/L (21.0-32.0); Calcium 8.4 mg/dL (8.5-10.1); Chloride 106 mmol/L (98-107); Estimated GFR 80.97 (mL/min/1.73m2); Glucose 153 mg/dL (74-106); Potassium 3.9 mmol/L (3.5-5.1); Sodium 142 mmol/L (136-145); Total Protein 7.5 g/dL (6.4-8.2)
[2022-03-18 14:49] LABS: PSA, Ultrasensitive 0.13 ng/mL (<= 6.5)
[2022-03-19 23:53] LABS: Testosterone, Total <7.0 ng/dL (240-950)
== END 2022-03-16 03:42 | disposition home or self-care (01) ==
PROVIDERS: PCP Family Medicine; Visit Provider Internal Medicine
DX: C61 Malignant neoplasm of prostate (principal); C79.51 Secondary malignant neoplasm of bone
CPT/HCPCS: 36415; 80053; 84153; 84403; 85025

== ENCOUNTER 2022-04-13 03:10 | Outpatient (CLI) | payer MEDICARE, BC, SELFPAY ==
[2022-04-13 11:09] LABS: Abs Immature Grans 0.01 10^3/uL (0.0-0.06); Absolute Basophil Count 0.03 10^3/uL (0.0-0.2); Absolute Lymphocyte Count 1.19 10^3/uL (1.2-3.4); Absolute Monocyte Count 0.55 10^3/uL (0.1-0.8); Basophils % 0.6; Eosinophils % 3.8; HCT 38.9 % (40.0-50.0); HGB 13.4 g/dL (13.5-17.5); Immature Grans % 0.2; Lymphocytes % 22.5; MCH 31.8 pg (27.0-33.0); MCHC 34.4 % (32.0-36.0); MCV 92 fL (80-95); MPV 8.9 fL (8.0-11.0); Monocytes % 10.4; Neutrophils % 62.5; Platelet Count 233 10^3/uL (130-400); RBC 4.21 10^6/uL (4.36-5.78); RDW 12.4 % (11.8-14.1); WBC 5.28 10^3/uL (4.4-10.8)
[2022-04-13 11:27] LABS: ALT 93 U/L (16-63); AST 53 U/L (15-37); Albumin 3.8 g/dL (3.4-5.0); Alkaline Phosphatase 71 U/L (46-116); Anion Gap 6.6 mmol/L (3-11); BUN 13 mg/dL (7-18); Bilirubin, Total 0.7 mg/dL (0.2-1.0); CO2 30.4 mmol/L (21.0-32.0); CREATININE 0.9 mg/dL (0.70-1.30); Calcium 8.3 mg/dL (8.5-10.1); Chloride 105 mmol/L (98-107); Estimated GFR 91.88 (mL/min/1.73m2); Glucose 106 mg/dL (74-106); Potassium 3.5 mmol/L (3.5-5.1); Sodium 142 mmol/L (136-145); Total Protein 7.1 g/dL (6.4-8.2)
[2022-04-14 17:18] LABS: PSA, Ultrasensitive 0.11 ng/mL (<= 6.5)
[2022-04-15 20:44] LABS: Testosterone, Total <7.0 ng/dL (240-950)
== END 2022-04-13 03:11 | disposition home or self-care (01) ==
PROVIDERS: PCP Family Medicine; Visit Provider Internal Medicine
DX: C61 Malignant neoplasm of prostate (principal); C79.51 Secondary malignant neoplasm of bone
CPT/HCPCS: 36415; 80053; 84153; 84403; 85025

== ENCOUNTER 2022-06-08 02:16 | Outpatient (CLI) | payer MEDICARE, BC, SELFPAY ==
[2022-06-08 10:01] LABS: Abs Immature Grans 0.01 10^3/uL (0.0-0.06); Absolute Basophil Count 0.04 10^3/uL (0.0-0.2); Absolute Eosinophil Count 0.19 10^3/uL (0.0-0.7); Absolute Lymphocyte Count 1.25 10^3/uL (1.2-3.4); Absolute Monocyte Count 0.47 10^3/uL (0.1-0.8); Absolute Neutrophil Count 3.76 10^3/uL (1.2-6.7); Basophils % 0.7; Eosinophils % 3.3; HCT 38.9 % (40.0-50.0); HGB 13.4 g/dL (13.5-17.5); Immature Grans % 0.2; Lymphocytes % 21.9; MCH 31.7 pg (27.0-33.0); MCHC 34.4 % (32.0-36.0); MCV 92 fL (80-95); MPV 8.7 fL (8.0-11.0); Monocytes % 8.2; Neutrophils % 65.7; Platelet Count 214 10^3/uL (130-400); RBC 4.23 10^6/uL (4.36-5.78); RDW 12.3 % (11.8-14.1); RDW-SD 41.9 fL; WBC 5.72 10^3/uL (4.4-10.8)
[2022-06-08 11:01] LABS: ALT 46 U/L (16-63); AST 26 U/L (15-37); Albumin 3.9 g/dL (3.4-5.0); Alkaline Phosphatase 62 U/L (46-116); Anion Gap 6.6 mmol/L (3-11); BUN 20 mg/dL (7-18); Bilirubin, Total 0.6 mg/dL (0.2-1.0); CO2 31.4 mmol/L (21.0-32.0); CREATININE 1.1 mg/dL (0.70-1.30); Chloride 104 mmol/L (98-107); Estimated GFR 72.22 (mL/min/1.73m2); Glucose 146 mg/dL (74-106); Potassium 4.1 mmol/L (3.5-5.1); Sodium 142 mmol/L (136-145); Total Protein 7.4 g/dL (6.4-8.2)
[2022-06-09 16:50] LABS: PSA, Ultrasensitive 0.06 ng/mL (<= 6.5)
[2022-06-12 04:23] LABS: Testosterone, Total <7.0 ng/dL (240-950)
== END 2022-06-08 02:17 | disposition home or self-care (01) ==
PROVIDERS: PCP Family Medicine; Visit Provider Internal Medicine
DX: C61 Malignant neoplasm of prostate (principal); C79.51 Secondary malignant neoplasm of bone
CPT/HCPCS: 36415; 80053; 84153; 84403; 85025

== ENCOUNTER 2022-06-29 02:31 | Outpatient (CLI) | payer MEDICARE, BC, SELFPAY ==
[2022-06-29 10:13] LABS: Abs Immature Grans 0.03 10^3/uL (0.0-0.06); Absolute Basophil Count 0.03 10^3/uL (0.0-0.2); Absolute Eosinophil Count 0.17 10^3/uL (0.0-0.7); Absolute Lymphocyte Count 1.22 10^3/uL (1.2-3.4); Absolute Monocyte Count 0.49 10^3/uL (0.1-0.8); Absolute Neutrophil Count 3.36 10^3/uL (1.2-6.7); Basophils % 0.6; Eosinophils % 3.2; HCT 38.3 % (40.0-50.0); HGB 12.8 g/dL (13.5-17.5); Immature Grans % 0.6; MCH 30.5 pg (27.0-33.0); MCHC 33.4 % (32.0-36.0); MCV 91 fL (80-95); MPV 9.1 fL (8.0-11.0); Monocytes % 9.2; Neutrophils % 63.4; Platelet Count 222 10^3/uL (130-400); RDW 12.5 % (11.8-14.1); RDW-SD 41.3 fL
[2022-06-29 10:43] LABS: ALT 112 U/L (16-63); AST 58 U/L (15-37); Albumin 3.8 g/dL (3.4-5.0); Alkaline Phosphatase 62 U/L (46-116); Anion Gap 5.8 mmol/L (3-11); BUN 20 mg/dL (7-18); Bilirubin, Total 0.5 mg/dL (0.2-1.0); CO2 28.2 mmol/L (21.0-32.0); Calcium 8.3 mg/dL (8.5-10.1); Chloride 105 mmol/L (98-107); Estimated GFR 80.97 (mL/min/1.73m2); Glucose 131 mg/dL (74-106); Potassium 3.7 mmol/L (3.5-5.1); Sodium 139 mmol/L (136-145); Total Protein 7.3 g/dL (6.4-8.2)
[2022-06-30 18:34] LABS: PSA, Ultrasensitive 0.05 ng/mL (<= 6.5)
[2022-07-03 00:39] LABS: Testosterone, Total <7.0 ng/dL (240-950)
== END 2022-06-29 02:32 | disposition home or self-care (01) ==
PROVIDERS: PCP Family Medicine; Visit Provider Internal Medicine
DX: C61 Malignant neoplasm of prostate (principal); C79.51 Secondary malignant neoplasm of bone
CPT/HCPCS: 36415; 80053; 84153; 84403; 85025

== ENCOUNTER 2022-07-05 15:25 | Outpatient (CLI) | payer MEDICARE, BC, SELFPAY ==
[2022-07-05 15:28] LABS: Abs Immature Grans 0.04 10^3/uL (0.0-0.06); Absolute Basophil Count 0.05 10^3/uL (0.0-0.2); Absolute Eosinophil Count 0.06 10^3/uL (0.0-0.7); Absolute Lymphocyte Count 1.54 10^3/uL (1.2-3.4); Absolute Neutrophil Count 6.61 10^3/uL (1.2-6.7); Basophils % 0.6; Eosinophils % 0.7; HCT 40.7 % (40.0-50.0); HGB 14.1 g/dL (13.5-17.5); Immature Grans % 0.5; Lymphocytes % 17.5; MCH 31.3 pg (27.0-33.0); MCHC 34.6 % (32.0-36.0); MCV 90 fL (80-95); MPV 9.1 fL (8.0-11.0); Monocytes % 5.7; Platelet Count 256 10^3/uL (130-400); RBC 4.51 10^6/uL (4.36-5.78); RDW 12.7 % (11.8-14.1); RDW-SD 41.8 fL
[2022-07-05 16:30] LABS: ALT 130 U/L (16-63); AST 65 U/L (15-37); Albumin 4.2 g/dL (3.4-5.0); Alkaline Phosphatase 72 U/L (46-116); Anion Gap 8.8 mmol/L (3-11); BUN 22 mg/dL (7-18); Bilirubin, Total 0.5 mg/dL (0.2-1.0); CO2 30.2 mmol/L (21.0-32.0); CREATININE 1.2 mg/dL (0.70-1.30); Calcium 8.5 mg/dL (8.5-10.1); Chloride 104 mmol/L (98-107); Estimated GFR 65.06 (mL/min/1.73m2); Glucose 158 mg/dL (74-106); Potassium 3.8 mmol/L (3.5-5.1); Sodium 143 mmol/L (136-145); Total Protein 7.7 g/dL (6.4-8.2)
[2022-07-07 12:05] LABS: PSA, Ultrasensitive 0.07 ng/mL (<= 6.5)
[2022-07-09 15:40] LABS: Testosterone, Total <7.0 ng/dL (240-950)
== END 2022-07-05 15:26 | disposition home or self-care (01) ==
LOC: LBO 15:26
PROVIDERS: PCP Family Medicine; Visit Provider Internal Medicine
DX: C61 Malignant neoplasm of prostate (principal); C79.51 Secondary malignant neoplasm of bone
CPT/HCPCS: 36415; 80053; 84153; 84403; 85025

== ENCOUNTER 2022-07-27 02:53 | Outpatient (CLI) | payer MEDICARE, BC, SELFPAY ==
[2022-07-27 09:26] LABS: Abs Immature Grans 0.07 10^3/uL (0.0-0.06); Absolute Basophil Count 0.04 10^3/uL (0.0-0.2); Absolute Monocyte Count 0.55 10^3/uL (0.1-0.8); Absolute Neutrophil Count 4.09 10^3/uL (1.2-6.7); Basophils % 0.6; Eosinophils % 1.6; HCT 41.9 % (40.0-50.0); HGB 14.3 g/dL (13.5-17.5); Immature Grans % 1.1; Lymphocytes % 22.4; MCHC 34.1 % (32.0-36.0); MCV 91 fL (80-95); Monocytes % 8.8; Neutrophils % 65.5; Platelet Count 230 10^3/uL (130-400); RBC 4.62 10^6/uL (4.36-5.78); RDW 12.8 % (11.8-14.1); RDW-SD 42.6 fL; WBC 6.25 10^3/uL (4.4-10.8)
[2022-07-27 10:14] LABS: ALT 55 U/L (16-63); AST 38 U/L (15-37); Alkaline Phosphatase 71 U/L (46-116); Anion Gap 9.7 mmol/L (3-11); BUN 19 mg/dL (7-18); Bilirubin, Total 0.4 mg/dL (0.2-1.0); CO2 28.3 mmol/L (21.0-32.0); Calcium 8.9 mg/dL (8.5-10.1); Chloride 103 mmol/L (98-107); Estimated GFR 80.97 (mL/min/1.73m2); Glucose 141 mg/dL (74-106); Potassium 4.1 mmol/L (3.5-5.1); Sodium 141 mmol/L (136-145); Total Protein 7.7 g/dL (6.4-8.2)
[2022-07-28 18:43] LABS: PSA, Ultrasensitive 0.04 ng/mL (<= 6.5)
[2022-07-31 16:30] LABS: Testosterone, Total <7.0 ng/dL (240-950)
== END 2022-07-27 02:54 | disposition home or self-care (01) ==
PROVIDERS: PCP Family Medicine; Visit Provider Internal Medicine
DX: C61 Malignant neoplasm of prostate (principal); C79.51 Secondary malignant neoplasm of bone
CPT/HCPCS: 36415; 80053; 84153; 84403; 85025

== ENCOUNTER 2022-07-30 00:31 | Outpatient (CLI) | payer MEDICARE, BC, SELFPAY ==
[2022-07-30] MEDS: Barium Sulfate 2% W/V-Berry Smoothie 450 ML BTL PO (09:25)
--- NOTE | 2022-07-30 10:15 | DI.NM_ITS ---
Exam(s) NM BONE SCAN WHOLE BODY GRP EXAM: NM BONE SCAN WHOLE BODY GRP CLINICAL HISTORY: PROSTATE CA, METS TO BONE, C61, C79.51. TECHNIQUE: Injected Dose: 25 mCi Tc-99m MDP Delayed Images: 2-3 hours. COMPARISON: No exams were available for comparison FINDINGS: Symmetric axial uptake. Bilateral renal excretion is identified. There are multiple foci of increased radiotracer uptake involving the axial and appendicular skeleton consistent with osseous metastatic disease. Findings include the calvarium, long bones, pelvis, ribs and spine. IMPRESSION: 1. Findings of diffuse osseous metastatic disease. DATA REPOSITORY:
--- NOTE | 2022-07-30 11:00 | DI.CT_ITS ---
Exam(s) CT CHEST/ABD/PEL W EXAM: CT CHEST/ABD/PEL W CLINICAL HISTORY: PROSTATE CA WITH METS TO BONE, C61, C79.51 TECHNIQUE: Imaging Protocol: Axial computed tomography images with coronal and sagittal reformatted images were created and reviewed CONTRAST MATERIAL: Intravenous: Omnipaque 350 contrast volume:100 mL Oral: Yes COMPARISON: CT ABD PELVIS WITH CONTRAST from 08/10/2015 FINDINGS: CHEST: Tracheobronchial tree: Patent where visualized. Pulmonary parenchyma: No consolidation or dominant measurable mass. No architectural distortion. Visualized thyroid gland: Unremarkable. Mediastinum and Lady: No dominant adenopathy or fluid collection. The esophagus is unremarkable. The re is a small hiatal hernia. Pleura: No effusion or pneumothorax. Heart: The heart is not dilated. No coronary artery calcifications are seen. No pericardial effusion. Pulmonary arteries: No pulmonary emboli are identified. Aorta: Thoracic aorta non-dilated. Lymph nodes: Within normal limits. Soft tissues: Mild gynecomastia. Bones:Within normal limits for the patient's age. There is diffuse sclerotic metastatic disease pres ent. ABDOMEN: Liver: Normal density. There are hepatic masses present. The largest is in the right lobe measures 2 .6 x 2.7 cm. The findings are most suggestive of metastatic disease. Portal, Superior Mesenteric, and Splenic Veins: Unremarkable. Gallbladder and Biliary Tract: No radiodense calculus or dilation. Pancreas: Normal density, no abnormal calcifications or inflammatory process. Spleen: There is a stable 1.2 cm round hypodensity in the inferior pole of the spleen. This is uncha nged compared to 2016. Adrenals: No masses seen. Kidneys: Normal size, contour and axis. No radiodense stones or obstructive uropathy. Simple renal cy sts are present. The largest is the left kidney and measures 3.5 cm. Note is made of a circum aorti c left renal vein. Abdominal Aorta: Abdominal portion non-dilated. Mild atherosclerosis. Bowel: There is diverticulosis seen in the sigmoid colon, but no evidence of acute diverticulitis. T here is no evidence of bowel obstruction or bowel wall thickening. Appendix is unremarkable. Peritoneal Cavity: No ascites, collection or mesenteric inflammatory response. No free air. Lymph Nodes: Within normal limits. There is a mildly enlarged 1.5 x 1 cm right internal iliac chain l ymph node. Bones: Within normal limits for the patient's age. There is diffuse osseous metastatic disease. The re is a compression fracture deformity of L3 with loss of almost 50 percent of the height of the vert ebral body. There is minimal retropulsion but no significant central spinal canal stenosis is seen. Soft Tissues: Small fat containing umbilical hernias. PELVIS: Bladder: The urinary bladder is incompletely distended. There is diffuse thickening of the wall of t he urinary bladder. Reproductive Organs: The prostate gland is enlarged. There is a an asymmetric 3.1 x 3.2 cm mass in t he posterior right aspect of the prostate gland which may reflect the patient's carcinoma. Lymph Nodes: Within normal limits. Bones: Within normal limits. Diffuse osseous metastatic disease. IMPRESSION: 1. 3.1 x 3.2 cm asymmetric mass in the right posterior aspect of the prostate gland which may reflect the patient's prostate carcinoma. 2. Diffuse osseous metastatic disease. 3. L3 compression fracture deformity with loss of almost 50 percent of the height of the vertebral scott dy. No significant central spinal canal stenosis is seen. 4. Multiple hepatic masses consistent with metastatic disease. An MRI of the liver may further ángel cterize the hepatic masses if clinically appropriate. 5. No acute pulmonary process. RADIATION DOSE DELIVERED: 1,728.04mGy.cm Total DLP DATA REPOSITORY: All CT scans at this facility are submitted to the National Radiology Data Registry (NRDR) Dose Index Registry (DIR) with the [employer] (A[employer]). RADIATION OPTIMIZATION: All CT scans at this facility use at least one of these dose optimization te chniques: automated exposure control; mA and/or kV adjustment per patient size (includes targeted exa ms where dose is matched to clinical indication); or iterative reconstruction.
[2022-07-30] MEDS: Omnipaque 350 MG/ML 100 ML BTL IJ (11:15)
[2022-07-30] MEDS: Normal Saline - Diluent 50 ML VIAL IJ (11:15)
== END 2022-07-30 00:51 ==
LOC: DI 00:31
PROVIDERS: PCP Family Medicine; Visit Provider Internal Medicine
DX: C61 Malignant neoplasm of prostate (principal); C79.51 Secondary malignant neoplasm of bone
CPT/HCPCS: 74177; 78306; 71260; J3490

== ENCOUNTER 2022-08-31 12:04 | Outpatient (CLI) | payer MEDICARE, BC, SELFPAY ==
[2022-08-31 12:23] LABS: Abs Immature Grans 0.19 10^3/uL (0.0-0.06); Absolute Basophil Count 0.03 10^3/uL (0.0-0.2); Absolute Eosinophil Count 0.01 10^3/uL (0.0-0.7); Absolute Lymphocyte Count 0.64 10^3/uL (1.2-3.4); Absolute Monocyte Count 0.46 10^3/uL (0.1-0.8); Absolute Neutrophil Count 6.51 10^3/uL (1.2-6.7); Basophils % 0.4; Eosinophils % 0.1; HCT 38.6 % (40.0-50.0); HGB 12.8 g/dL (13.5-17.5); Immature Grans % 2.4; Lymphocytes % 8.2; MCH 31.5 pg (27.0-33.0); MCHC 33.2 % (32.0-36.0); MCV 95 fL (80-95); MPV 10.2 fL (8.0-11.0); Monocytes % 5.9; Platelet Count 141 10^3/uL (130-400); RBC 4.06 10^6/uL (4.36-5.78); RDW 14.1 % (11.8-14.1); RDW-SD 49.1 fL; WBC 7.84 10^3/uL (4.4-10.8)
[2022-08-31 12:45] LABS: ALT 162 U/L (16-63); AST 74 U/L (15-37); Albumin 3.4 g/dL (3.4-5.0); Alkaline Phosphatase 127 U/L (46-116); Anion Gap 8.4 mmol/L (3-11); BUN 34 mg/dL (7-18); Bilirubin, Total 0.6 mg/dL (0.2-1.0); CO2 29.6 mmol/L (21.0-32.0); Calcium 8.1 mg/dL (8.5-10.1); Chloride 105 mmol/L (98-107); Estimated GFR 80.47 (mL/min/1.73m2); Glucose 195 mg/dL (74-106); Potassium 3.9 mmol/L (3.5-5.1); Sodium 143 mmol/L (136-145); Total Protein 6.8 g/dL (6.4-8.2)
[2022-09-01 18:17] LABS: PSA, Ultrasensitive 0.16 ng/mL (<= 6.5)
[2022-09-04 15:15] LABS: Testosterone, Total 12 ng/dL (240-950)
== END 2022-08-31 12:05 | disposition home or self-care (01) ==
LOC: LBO 12:11
PROVIDERS: PCP Family Medicine; Visit Provider Internal Medicine
DX: C61 Malignant neoplasm of prostate (principal); C79.51 Secondary malignant neoplasm of bone
CPT/HCPCS: 36415; 80053; 84153; 84403; 85025